=== PATIENT | female | born 1950 | race Caucasian/White ===

== ENCOUNTER → 2019-02-22 08:58 | Outpatient (CLI) | payer MEDICARE, OTHER, SELFPAY ==
[2019-01-09 14:40] VITALS: BMI 24.5
== END ==
PROVIDERS: Family Provider Internal Medicine; PCP Internal Medicine; Referring Provider Internal Medicine Cardiovascular Disease; Visit Provider Internal Medicine Cardiovascular Disease
DX: I47.1 Supraventricular tachycardia (principal)
CPT/HCPCS: 93225; 93226

== ENCOUNTER → 2020-04-16 09:48 | Outpatient (CLI) | payer MEDICARE, OTHER, SELFPAY ==
[2020-04-15 12:59] VITALS: BMI 24.1
[2020-04-16 10:36] LABS: AST(SGOT) 23 U/L (15-37); Alanine Aminotransfer ALT/SGPT 24 U/L (13-56); Albumin, Serum 3.9 g/dL (3.2-5.0); Alkaline Phosphatase 69 U/L (45-117); Bilirubin, Direct 0.15 mg/dL (0.00-0.30); Cholesterol 246 mg/dL (200); Globulin 3.4 g/dL (2.2-4.2); High Density Lipoprotein 58 mg/dL; Protein, Total 7.3 g/dL (6.4-8.2); Triglycerides 157 mg/dL; Very Low Density Lipoprotein 31 mg/dL (5-40)
== END ==
PROVIDERS: PCP Internal Medicine; Referring Provider Internal Medicine Cardiovascular Disease; Visit Provider Internal Medicine Cardiovascular Disease
DX: E78.5 Hyperlipidemia, unspecified (principal)
CPT/HCPCS: 36415; 80061; 80076

== ENCOUNTER → 2020-05-29 10:03 | Outpatient (CLI) | payer MEDICARE, OTHER, SELFPAY ==
[2020-04-15 12:59] VITALS: BMI 24.1
[2020-05-29 10:57] LABS: AST(SGOT) 22 U/L (15-37); Alanine Aminotransfer ALT/SGPT 27 U/L (13-56); Albumin, Serum 3.8 g/dL (3.2-5.0); Alkaline Phosphatase 83 U/L (45-117); Bilirubin, Direct 0.11 mg/dL (0.00-0.30); Cholesterol 223 mg/dL (200); Globulin 3.4 g/dL (2.2-4.2); High Density Lipoprotein 49 mg/dL; Protein, Total 7.2 g/dL (6.4-8.2); Triglycerides 185 mg/dL; Very Low Density Lipoprotein 37 mg/dL (5-40)
== END ==
PROVIDERS: PCP Internal Medicine; Referring Provider Nurse Practitioner Family; Visit Provider Nurse Practitioner Family
DX: E78.5 Hyperlipidemia, unspecified (principal)
CPT/HCPCS: 36415; 80061; 80076

== ENCOUNTER 2021-04-17 05:27 | Day surgery (SDC) | payer MEDICARE, OTHER, SELFPAY ==
[2021-01-15 10:54] VITALS: BMI 23.7
[2021-04-17] VITALS (8 sets, daily range): BP systolic 130–187; BP diastolic 70–105; PULSE 69–75; RESP 16; TEMP 35.9–36.6; O2SAT 95–100; BMI 23.8
[2021-04-17] MEDS: Lactated Ringers 1,000 ML 100 ML IV (06:02)
--- NOTE | 2021-04-17 06:20 | PCM.HP.STD ---
HPI - General [facility] Jadiel DUMONT, is a 70 F who presentsFor a surveillance colonoscopy. The patient has a previous history of colon cancer 19 years prior. Her most recent colonoscopy was February 2016. She denies bright red blood per rectum or melena. She has not had COVID-19. She has been vaccinated. She does have atrial fibrillation and she is on low-dose aspirin. No abdominal pain. No unexpected weight loss. [facility], [facility] Medical History (Updated 04/17/21 @ 06:[address] Ruddy Orellana MD) Abnormal nuclear stress test (12/24/18) Blackout Essential (primary) hypertension History of colon cancer History of diverticulitis History of echocardiogram History of stress test Hx of skin cancer, basal cell Hyperlipidemia Non-smoker Osteoarthritis PAF (paroxysmal atrial fibrillation) Palpitations Paroxysmal SVT (supraventricular tachycardia) (11/06/19) Seasonal allergies Syncope Wears glasses Home Medications fluticasone propionate 1 spray NASAL DAILY 03/24/17 [History Last Taken Unknown] multivitamin 1 ea PO DAILY 03/24/17 [History Last Taken Unknown] biotin 5,000 mcg disintegrating tablet 10,000 mcg PO DAILY 01/09/19 [History Last Taken Unknown] cholecalciferol (vitamin D3) 50 mcg (2,000 unit) capsule 2,000 unit PO DAILY 01/09/19 [History Last Taken Unknown] cyclosporine 0.05 % eye drops in a dropperette 1 drp OPHTHALMIC Q12H 01/09/19 [History Last Taken Unknown] lactobacillus combination no.9 4 billion cell capsule 4,000 mmu cells PO DAILY 01/09/19 [History Last Taken Unknown] methylcellulose (with sugar) oral powder packet 1 ea PO DAILY 01/09/19 [History Last Taken Unknown] aspirin 81 mg tablet,delayed release 81 mg PO QDAY #90 tab 04/17/20 [Rx Last Taken Unknown] metoprolol tartrate 25 mg tablet 12.5 mg PO BID #90 tab 09/25/20 [Rx Last Taken Unknown] lisinopril 5 mg tablet 5 mg PO DAILY #90 tab 01/15/21 [Rx Last Taken Unknown] Allergy/AdvReac Type Severity Reaction Status Date / Time No Known Allergies Allergy Verified 04/14/21 12:15 Family History Father Diabetes Hyperlipidemia Atrial fibrillation Mother Diabetes Hyperlipidemia Myocardial infarction CAD (coronary artery disease) Surgical History (Updated 11/29/20 @ 12:32 by Tiffany Sales) H/O radiofrequency ablation for complex left atrial arrhythmia (11/06/19) History of appendectomy History of colon resection (2001) History of left heart catheterization (12/26/18) History of left oophorectomy (2001) Status post surgical removal of malignant neoplasm of skin Social History (Updated 04/15/20 @ 13:[address] Joe Mann MD) Smoking Status: Never smoker ROS Constitutional Constitutional: Reports systems reviewed and no addt'l complaints, except as documented Cardiovascular Cardiovascular: Denies chest pain Respiratory/Chest Respiratory/Chest: Denies shortness of breath at rest Gastrointestinal Gastrointestinal: Denies abdominal pain, change in bowel habits, hematochezia or melena Vital Signs Vital Signs Vital Signs: 04/17/21 05:57 Temperature 97.8 F Temperature Source Temporal Pulse Rate 73 Respiratory Rate 16 Respiratory Pattern Normal Blood Pressure 165/99 H Blood Pressure Mean 121 Blood Pressure Source Monitor Blood Pressure Position Semi-Fowlers Pulse Ox 99 Oxygen Delivery Method Room Air Weight Weight: 152 lb 1.903 oz Body Mass Index (BMI) 23.8 Physical Exam Const alert, oriented x3 and no apparent distress General Appearance: cooperative and comfortable Eyes General Eye: normal appearance of both eyes Neck General: normal visual inspection Chest inspection of chest normal Resp Effort and Inspection: able to speak in complete sentences and symmetric chest movement Auscultation: clear to auscultation bilaterally Cardio regular rate and regular rhythm GI soft to palpation, non-tender and non-distended Extremity no calf tenderness Neuro oriented x3 Psych thought process normal Assessment & Plan Assessment/Plan (1) History of colon cancer: PLAN: The patient presents via open access today. I recommend to her a colonoscopy with possible biopsy or polypectomy as indicated. She is aware of the technique, benefit, risk, alternatives. We will proceed as noted. Ruddy Orellana M.D., F.A.C.S.
[2021-04-17] MEDS: Midazolam 5 MG/ML Syringe (06:35)
--- NOTE | 2021-04-17 06:52 | OP.COLON_ITS ---
Patient Name: Erika Yancey Procedure Date: 04/17/2021 6:09 AM Date of : 1950 Age: 70 Procedure: Colonoscopy Indications: High risk colon cancer surveillance: Personal history of colon cancer Providers: Ruddy Orellana MD Medicines: Midazolam 3 mg IV, Meperidine 100 mg IV Patient Profile: Last Colonoscopy: 5 years ago. Complications: No immediate complications. Procedure: Pre-Anesthesia Assessment: - Prior to the procedure, a History and Physical was performed, and patient medications and allergies were reviewed. The patient's tolerance of previous anesthesia was also reviewed. The risks and benefits of the procedure and the sedation options and risks were discussed with the patient. All questions were answered, and informed consent was obtained. Prior Anticoagulants: The patient has taken aspirin, last dose was day of procedure. ASA Grade Assessment: II - A patient with mild systemic disease. After reviewing the risks and benefits, the patient was deemed in satisfactory condition to undergo the procedure. After I obtained informed consent, the scope was passed under direct vision. Throughout the procedure, the patient's blood pressure, pulse, and oxygen saturations were monitored continuously. The pediatric colonoscope was introduced through the anus and advanced to the cecum, identified by appendiceal orifice and ileocecal valve. The colonoscopy was performed without difficulty. The patient tolerated the procedure well. The quality of the bowel preparation was good. The ileocecal valve and the appendiceal orifice were photographed. Moderate Sedation: Moderate (conscious) sedation was personally administered by the endoscopist. The following parameters were monitored: oxygen saturation, heart rate, blood pressure, and response to care. Total physician intraservice time was 15 minutes. Scope In: 6:36:13 AM Scope Withdrawal Time 0 hours 5 minutes 44 seconds Scope Out: 6:47:44 AM Total Procedure Duration Time 0 hours 11 minutes 31 seconds Findings: Hemorrhoids were found on perianal exam. There was evidence of a prior end-to-end colo-colonic anastomosis in the distal sigmoid colon. This was patent and was characterized by healthy appearing mucosa. Multiple diverticula were found in the entire colon. The exam was otherwise without abnormality. Impression: - Hemorrhoids found on perianal exam. - Patent end-to-end colo-colonic anastomosis, characterized by healthy appearing mucosa. - Diverticulosis in the entire examined colon. - The examination was otherwise normal. - No specimens collected. Recommendation: - Discharge patient to home. - Resume previous diet. - Continue present medications. - Repeat colonoscopy in 5 years for surveillance. Procedure Code(s): --- Professional --- 98941, Colonoscopy, flexible; diagnostic, including collection of specimen(s) by brushing or washing, when performed (separate procedure) 28735, 59, Moderate sedation services provided by the same physician or other qualified health career professional performing the diagnostic or therapeutic service that the sedation supports, requiring the presence of an independent trained observer to assist in the monitoring of the patient's level of consciousness and physiological status; initial 15 minutes of intraservice time, patient age 5 years or older Diagnosis Code(s): --- Professional --- Z85.038, Personal history of other malignant neoplasm of large intestine K64.9, Unspecified hemorrhoids Z98.0, Intestinal bypass and anastomosis status K57.30, Diverticulosis of large intestine without perforation or abscess without bleeding CPT copyright 2017 [employer]. All rights reserved. The codes documented in this report are preliminary and upon public events facilities rental manager review may be revised to meet current compliance requirements. Ruddy Orellana MD 04/17/2021 6:52:17 AM This report has been signed electronically. Number of Addenda: 0 Note Initiated On: 04/17/2021 6:09 AM
--- NOTE | 2021-04-17 06:53 | OP.CCLET_ITS ---
04/17/2021 Jennifer Kee [address] [id number] Re : Colonoscopy procedure for Erika Yancey Dear Dr. Kee This procedure was performed on Saturday, April 17, 2021. My impressions and recommendations are as follows: Impressions : - Hemorrhoids found on perianal exam. - Patent end-to-end colo-colonic anastomosis, characterized by healthy appearing mucosa. - Diverticulosis in the entire examined colon. - The examination was otherwise normal. - No specimens collected. Recommendations : - Discharge patient to home. - Resume previous diet. - Continue present medications. - Repeat colonoscopy in 5 years for surveillance. My findings are described in the full procedure note, which is enclosed. If I can be of further assistance, please feel free to contact me at Doctor phone number(s): Work: . Sincerely, Ruddy Orellana MD 04/17/2021 6:52:17 AM This report has been signed electronically.
== END 2021-04-17 07:41 ==
LOC: EN 05:29 → AC 05:30
PROVIDERS: PCP Internal Medicine; Referring Provider Internal Medicine; Visit Provider Surgery
PROC: 0DJD8ZZ Inspection of Lower Intestinal Tract, Via Natural or Artificial Opening Endoscopic (ICD-10-PCS; CPT 45378; principal; 2021-04-17 06:25)
DX: Z12.11 Encounter for screening for malignant neoplasm of colon (principal); K57.30 Diverticulosis of large intestine without perforation or abscess without bleeding; K64.9 Unspecified hemorrhoids; Z98.0 Intestinal bypass and anastomosis status; Z85.038 Personal history of other malignant neoplasm of large intestine; I48.0 Paroxysmal atrial fibrillation; I10 Essential (primary) hypertension; E78.5 Hyperlipidemia, unspecified; M19.90 Unspecified osteoarthritis, unspecified site; Z79.82 Long term (current) use of aspirin; Z79.899 Other long term (current) drug therapy; Z85.828 Personal history of other malignant neoplasm of skin
CPT/HCPCS: G0105; 99152; 99153; J7120

== ENCOUNTER → 2025-04-20 | Outpatient (CLI) | payer MEDICARE, SELFPAY ==
--- NOTE | 2025-04-20 07:56 | CT_ITS ---
PROCEDURE: SINUS/FACIAL BONE 04/20/2025 REASON FOR EXAM: CHRONIC SINUSITIS 4 year history of left maxillary pain. Multiple dental procedures. TECHNIQUE: SINUS/FACIAL BONE Coronal and Sagittal reconstruction series were provided. One or more dose reduction techniques were used (e.g., Automated exposure control, adjustment of the mA and/or kV according to patient size, use of iterative reconstruction technique). RADIATION DOSE SUMMARY: CTDlvol: 12.19 mGy DLP: 800.79 mGycm COMPARISON: None FINDINGS: Frontal: Unremarkable Ethmoid: Unremarkable Sphenoid: Unremarkable Maxillary: There is a 9.2 mm polyp or retention cyst in the anterior inferior aspect of the left maxillary sinus. Turbinates: Unremarkable Nasal Septum: Midline Mastoids/Middle Ears: Unremarkable There is a 1 cm well-defined lymph node in the left submandibular There is a 9.5 mm rounded dense this may represent a densely calcified meningioma. CT/Sinus/Facial Bone IMPRESSION: 9.2 mm polyp or retention cyst in the anterior inferior aspect of the left maxi llary sinus. 9.5 mm rounded densely ossified nodule in the anterior medial aspect of the rig ht temporal lobe. This may represent a densely calcified meningioma. Reading Location: [facility]
--- OUTSIDE RECORDS SUMMARY | 2025-04-20 07:56 | XMS RPT_ITS | CCD ---
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 Name Role Phone GANTA, JENNIFER Unavailable Unavailable Roof HEALTH UNIT CLERK, Marcell Lai Attending Unavailable Ganta, Jennifer Referring Unavailable Ganta, Jennifer Primary Care Unavailable Ganta, Jennifer Referring Unavailable Ganta, Jennifer Primary Care Unavailable Roof HEALTH UNIT CLERK, Marcell Lai Attending Unavailable Ganta Jennifer COLIN Primary Care Provider [phone] Jennifer Garay MD Primary Care Provider [phone] Older RESEARCH PROJECT MANAGER.MARKETING DATABASE CONSULTANT, Ginger Unavailable GANTA, JENNIFER Referring Unavailable GANTA, JENNIFER Primary Care Unavailable GANTA, JENNIFER Attending Unavailable GANTA, JENNIFER Primary Care Unavailable GANTA, JENNIFER Referring Unavailable GANTA, JENNIFER Primary Care Unavailable GANTA, JENNIFER Referring Unavailable GANTA, JENNIFER Primary Care Unavailable GANTA, JENNIFER Attending Unavailable GANTA, JENNIFER Primary Care Unavailable GANTA, JENNIFER Referring Unavailable GANTA, JENNIFER Primary Care Unavailable GANTA, JENNIFER Attending Unavailable GANTA, JENNIFER Primary Care Unavailable Allergies Allergy Classification Reported Allergen(s) Allergy Type Date of Onset Reaction(s) Facility Pollen (2 sources) Grass pollen Substance Allergy 6 [facility] Work Phone: (18 sources) Grass pollen; Translations: [GRASS POLLEN] Propensity to adverse reactions to drug (disorder) 6 [facility] (18 sources) Pollen; Translations: [POLLEN] Propensity to adverse reactions (disorder) 6 [facility] (19 sources) Tree; Translations: [TREES] Propensity to adverse reactions (disorder) 6 [facility] (19 sources) RAGWEED; Translations: [RAGWEED] Propensity to adverse reactions (disorder) 6 [facility] Medications Current Medications Medication Drug Class(es) Dates Sig (Normalized) Sig (Original) Acetaminophen (3 sources) acetaminophen (TYLENOL ARTHRITIS ORAL) Take by mouth. Active amLODIPine 2.5 mg oral tablet (4 sources) Dihydropyridine Calcium Channel Adrian Start: 01-14-2025 End: 04-15-2026 take 1 tablet by mouth once daily amLODIPine (NORVASC) 2.5 mg tablet Take 1 tablet by mouth once daily. 90 tablet 3 04/15/2025 04/15/2026 Active amoxicillin 875 mg / clavulanate 125 mg oral tablet (2 sources) Penicillin-class Antibacterial Start: 07-05-2024 take 1 tablet by mouth every twelve hours amoxicillin-clavul anate potassium (AUGMENTIN) 875-125 mg per tablet Take 1 tablet by mouth every 12 hours. 07/05/2024 Active aspirin 81 mg oral tablet (17 sources) Platelet Aggregation Inhibitor, Nonsteroidal Anti-inflammatory Drug Start: 10-19-2005 ASPIRIN 81 MG TAB Take one (1) tablet daily . 0 10/19/2005 Active Comment on above: Take one (1) tablet daily . biotin 0.8 mg oral tablet (17 sources) Start: 10-20-2005 BIOTIN 800 MCG TAB Take one(1) tablet two(2) times daily. 0 10/20/2005 Active Comment on above: Take one(1) tablet t wo(2) times daily. cycloSPORINE 0.5 mg/ml ophthalmic suspension (17 sources) Calcineurin Inhibitor Immunosuppressant take 1 drop(s) into the eye(s) twice daily cycloSPORINE (RESTASIS) 0.05 % ophthalmic emulsion 1 Drop twice daily. Active Comment on above: 1 Drop twice daily. fluticasone propionate 0.05 mg/actuat metered dose nasal spray (17 sources) Corticosteroid Start: 06-30-2015 take 2 spray(s) nasal route once daily fluticasone (FLONASE) 50 mcg/actuation nasal spray Indications: Chronic rhinitis Use 2 Sprays in each nostril once daily. 3 Bottle 3 06/30/2015 Active Comment on above: Use 2 Sprays in each nostril once daily. lisinopril 20 mg oral tablet (11 sources) Angiotensin Converting Enzyme Inhibitor Start: 01-14-2025 lisinopril (ZESTRIL) 20 mg tablet Take 1 tablet by mouth two times a day. Per Dr. Hardwick 180 tablet 01/14/2025 Active Start: 01-18-2022 End: 02-01-2023 take 1 tablet by mouth once daily lisinopril (ZESTRIL, PRINIVIL) 10 mg tablet Take 1 tablet by mouth once daily. 90 tablet 3 01/18/2022 02/01/2023 Discontinued lisinopril (ZEST RIL) 30 mg tablet Take 30 mg by mouth once daily. 10 mg AM and 20 mg PM - Managed by Dr. Hardwick Active Comment on above: Take 1 tablet by [facility] once daily. methylcellulose 500 mg oral tablet (17 sources) Start: 02-02-20 08 methylcellulose(CITR UCEL 500 MG TAB) daily 0 0 02/02/2008 Active Comment on above: daily metoprolol tartrate 25 mg oral tablet (17 sources) beta-Adrenergic Adrian Start: 01-19-20 22 metoprolol tartrate, short acting, (LOPRESSOR) 25 mg tablet Takes half a pill 2 times a day 01/18/2022 Active Comment on above: Takes half a pill 2 times a day MULTIVITAMIN TAB (17 sources) Start: 10-19-19 06 MULTIVITAMIN TAB Take one(1) tablet daily. 0 10/19/2005 Active Comment on above: Take one(1) tablet d aily. rosuvastatin calcium 10 mg oral tablet (4 sources) HMG-CoA Reductase Inhibitor Start: 01-15-20 End: 04-15-20 26 take 1 tablet by mouth once daily at bedtime rosuvastatin (CRESTOR) 10 mg tablet Take 1 tablet by mouth daily at bedtime. 90 tablet 3 04/15/2025 04/15/2026 Active Completed/Discontinued Medications Medication Drug Class(es) Dates Sig (Normalized) Sig (Original) cetirizine hydrochloride 10 mg oral tablet (5 sources) Histamine-1 Receptor Antagonist Start: 10-20-2005 End: 02-01-2023 ZYRTEC 10 MG TAB Take one(1) tablet daily. 0 10/20/2005 02/01/2023 Discontinued Comment on above: Take one(1) tablet d aily. COMPOUNDED PRESCRIPTION (5 sources) Start: 07-22-2017 End: 02-01-2023 COMPOUNDED PRESCRIPTION Indications: Chronic seasonal allergic rhinitis due to pollen Allergy sublingual drops : ordered by 0 07/22/2017 02/01/2023 Discontinued Start: 07-22-2017 COMPOUNDED PRE SCRIPTION Indications: Chronic seasonal allergic rhinitis due to pollen Allergy sublingual drops : ordered by 0 07/22/2017 Active Comment on above: Allergy sublingual d rops : ordered by Problems Active Problems Problem Classification Problem Date Documented Da te Episodic/Chronic Cancer of colon (19 sources) Malignant tumor of colon; Translations: [Malignant neoplasm of colon, unspecified] 07-22-2017 Chronic Cardiac dysrhythmias (20 sources) Supraventricular tachycardia; Translations: [Supraventricular tachycardia] Onset: 9 01-22-2019 Chronic Disorders of lipid metabolism (4 sources) Hyperlipidemia; Translations: [Hyperlipidemia, unspecified] Onset: 3 Chronic Diverticulosis and diverticulitis (20 sources) Diverticulitis of large intestine without perforation or abscess without bleeding; Translations: [Diverticulitis of colon (without mention of hemorrhage)] Onset: 8 10-19-2005 Chronic Essential hypertension (20 sources) Essential hypertension; Translations: [Essential (primary) hypertension] Onset: 6 06-30-2015 Chronic Occlusion or stenosis of precerebral arteries (1 source) Occlusion and stenosis of bilateral carotid arteries; Translations: [Bilateral carotid artery stenosis] Onset: 5 Chronic Other aftercare (1 source) Other intermediate designer (current) drug therapy; Translations: [Medication management] Onset: 5 Episodic Other and ill-defined heart disease (18 sources) Left ventricular hypertrophy; Translations: [Cardiomegaly] Onset: 7 07-22-2017 Chronic Other gastrointestinal disorders (18 sources) Constipation; Translations: [Constipation, unspecified] Onset: 8 01-18-2008 Episodic Other gastrointestinal disorders (1 source) Constipation, unspecified; Translations: [Constipation, unspecified constipation type] Onset: 5 Episodic Other screening for suspected conditions (not mental disorders or infectious disease) (10 sources) Patient encounter status; Translations: [Encounter for screening mammogram for malignant neoplasm of breast] Onset: 5 Episodic Other upper respiratory disease (17 sources) Allergic rhinitis; Translations: [Allergic rhinitis, unspecified] Onset: 6 07-22-2017 Chronic Past or Other Problems Problem Classification Problem Date Documented Da te Episodic/Chronic Cardiac dysrhythmias (16 sources) Palpitations; Translations: [Tachycardia] Onset: 01-23-2018 01-22-2019 Episodic Diabetes mellitus without complication (20 sources) Abnormal glucose tolerance test; Translations: [Other abnormal glucose] Onset: 01-08-2025 10-19-2005 Episodic Other inflammatory condition of skin (17 sources) Itching of skin; Translations: [Pruritus, unspecified] Onset: 06-30-2015 06-30-2015 Episodic Other non-traumatic joint disorders (18 sources) Pain in left knee; Translations: [Pain in joint, lower leg] Onset: 03-03-2016 03-03-2016 Episodic Spondylosis; intervertebral disc disorders; other back problems (17 sources) Neck pain; Translations: [Cervicalgia] Onset: 03-03-2016 03-03-2016 Episodic Results Test Name Value Interpretation Reference Range Facility [facility] 04-15-2025 CNOV Office Visit (INTMWS) ERIKA YANCEY ([id number]) 1950 F Date Time Provider Department 04/15/25 11:40 AM JENNIFER GARAY INTMWS During your visit today, we recorded the following information about you: Pulse Respiration Blood pressure Weight 68/minute 16/minute 138/80 70.8 kg Height 1.72 m Jennifer Garay MD 04/15/2025 12:45 PM Signed Erika Goldberg Naye is a 74 year old female here for a Medicare wellness visit. Medicare Health Risk Assessment General Health Very good Exercise: Minutes/Day 80 min Exercise: Days/Week 7 days Alcohol: Daily Use Never Alcohol: Drinks/Day Patient does not drink Alcohol: 6 or more drinks Never Feel off balance No Concerns: Teeth/Dentures Yes Concerns: Sexual function No Troubled by feelings None of the above Frequency: Eating healthy diet Nearly every day ADLs requiring help None of the above Safety precautions in home/vehicle Yes Smoke, vape, chews tobacco No Difficulty hearing No Difficulty seeing No Current Providers Specialists: I have reviewed specialist-related care of the patient in the medical record. Medical/Family history review Reviewed and updated problem list, medical/surgical/fam pam/social history, medications, and allergies. Opioid use review Opioid Medications (last 90 days) No data to display Anxiety/Depression screening FABIENNE-7 Score: 0. Recommendation: no further intervention at this time Cognitive screening Mini Cog Score: 5 Cognitive screening reviewed and No further action needed (score 3-5). Functional Observation Was the patient's Timed Up AND Go test unsteady or >= 12 seconds? No Advance Care Planning Surrogate decision maker and/or advance care plan documented Measurements BP 138/80 Pulse 68 Resp 16 Ht 172 cm (5' 7.72) Wt 70.8 kg (156 lb) SpO2 98% BMI 23.92 kg/m? Vision Screening: Follows with optometry/ophthalmol ogy Assessment/Plan Medicare annual wellness visit, subsequent (Z00.00) - Counseled on healthy diet and regular exercise - Fall avoidance information provided - Personalized prevention plan provided. Reason for Visit HPI Erika Yancey is a 74-year-old female with a history of paroxysmal atrial fibrillation, hypercholesterolemia , and elevated blood pressure, presenting for a Medicare Annual Wellness Visit. Erika reports improved blood pressure readings, with fewer measurements in the 140s compared to previous recordings. She attributes this improvement to her current medication regimen, which includes amlodipine. She is requesting a 90-day supply with three refills for both amlodipine and rosuvastatin, as she finds monthly pharmacy visits inconvenient. She exercises daily for 80 minutes, 7 days a week, and rates her health as very good. She denies alcohol consumption, smoking, or difficulties with hearing or vision. She has been taking rosuvastatin 10 mg since the spring and notes significant improvement in her lipid levels. She is also on aspirin for paroxysmal atrial fibrillation. Recent lab results show a decrease in A1c from 6.0 to 5.9, stable glucose levels, and kidney function at 91. Her weight remains stable, with minor fluctuations attributed to bowel movements. She reports sluggish and dry bowels, requiring focused management. She has made dietary changes, reducing dessert and pasta intake, which she believes contributed to the improvement in her A1c levels. Social History Tobacco Use Smoking status: Never Smokeless tobacco: Never Substance Use Topics Alcohol use: No Drug use: No Past medical history, appointments, medications, allergies reviewed. Pertinent Lab/Diagnostic Studies are reviewed and discussed today Current Outpatient Medications: rosuvastatin (CRESTOR) 10 mg tablet amLODIPine (NORVASC) 2.5 mg tablet lisinopril (ZESTRIL) 20 mg tablet acetaminophen (TYLENOL ARTHRITIS ORAL) metoprolol tartrate, short acting, (LOPRESSOR) 25 mg tablet fluticasone (FLONASE) 50 mcg/actuation nasal spray cycloSPORINE (RESTASIS) 0.05 % ophthalmic emulsion methylcellulose(CITR UCEL 500 MG TAB) BIOTIN 800 MCG TAB MULTIVITAMIN TAB ASPIRIN 81 MG TAB Health Maintenance Depression Screening Anxiety Screening Medicare Advantage Annual Wellness Visit@ Review Of Systems Eyes: (-) visual difficulty Ears/Nose/Mouth/Thro at: (-) hearing difficulty Gastrointestinal: (+) constipation Physical Exam BP 138/80 Pulse 68 Resp 16 Ht 172 cm (5' 7.72) Wt 70.8 kg (156 lb) SpO2 98% BMI 23.92 kg/m? GENERAL: NAD, alert and oriented SKIN: unremarkable, no rash or skin lesions. HEAD: normocephalic EYES: PERRLA, EOMI, conjunctiva clear EARS: external ears normal, canals clear, TM's normal. LUNGS: Clear to auscultation bilaterally, no wheezes/rhonchi/rale s. HEART: Regular rate and rhythm, no murmurs. No ectopy. EXTREMITIES: Normal, No deformities, No skin (more content not included)... Normal [facility] CBC panel Auto (Bld)on 04-09 Erythrocyte distribution width (RBC) [Ratio] 13.2 % Normal 11.5-15.0 [facility] Comment on above: Order Comment: Speci men Type: BLOOD SPECIMEN Ordering Facility: [facility] Address: [address] [place] [address] Performed By: #### 5 8410-2 #### [facility] CLIA [id number] [address] [place] [address] [place] [address] [place] Hematocrit (Bld) [Volume fraction] 38.3 % Normal 36.0-46.0 [facility] Comment on above: Order Comment: Speci men Type: BLOOD SPECIMEN Ordering Facility: [facility] Address: [address] [place] [address] Performed By: #### 5 8410-2 #### [facility] CLIA [id number] [address] [place] [address] [place] Hemoglobin (Bld) [Mass/Vol] 12.0 g/dL Normal 11.5-15.5 [facility] Comment on above: Order Comment: Speci men Type: BLOOD SPECIMEN Ordering Facility: [facility] Address: [address] [place] [address] Performed By: #### 5 8410-2 #### [facility] CLIA [id number] [address] [place] [address] [place] MCH (RBC) [Entitic mass] 29.3 pg Normal 26.0-34.0 [facility] Comment on above: Order Comment: Speci men Type: BLOOD SPECIMEN Ordering Facility: [facility] Address: [address] [place] [address] Performed By: #### 5 8410-2 #### [facility] CLIA [id number] [address] [place] [address] [place] MCHC (RBC) [Mass/Vol] 31.3 g/dL Normal 30.5-36.0 [facility] Comment on above: Order Comment: Speci men Type: BLOOD SPECIMEN Ordering Facility: [facility] Address: [address] [place] [address] Performed By: #### 5 8410-2 #### [facility] CLIA [id number] [address] [place] [address] [place] MCV (RBC) [Entitic vol] 93.6 fL Normal 80.0-100.0 [facility] Comment on above: Order Comment: Speci men Type: BLOOD SPECIMEN Ordering Facility: [facility] Address: [address] [place], [place] [address] Performed By: #### 5 8410-2 #### [facility] CLIA [id number] [address] [place] [address] [place] Nucleated RBC (Bld) [#/Vol] 10*3/uL Normal <0.01 [facility] Comment on above: Order Comment: Speci men Type: BLOOD SPECIMEN Ordering Facility: [facility] Address: [address] [place] [address] Performed By: #### 5 8410-2 #### [facility] CLIA [id number] [address] [place] [address] [place] Platelet mean volume (Bld) [Entitic vol] 9.5 fL Normal 9.0-12.7 [facility] Comment on above: Order Comment: Speci men Type: BLOOD SPECIMEN Ordering Facility: [facility] Address: [address] [place] [address] Performed By: #### 5 8410-2 #### [facility] CLIA [id number] [address] [place] [address] [place] Platelets (Bld) [#/Vol] 190 10*3/uL Normal 150-400 [facility] Comment on above: Order Comment: Speci men Type: BLOOD SPECIMEN Ordering Facility: [facility] Address: [address] [place] [address] Performed By: #### 5 8410-2 #### [facility] CLIA [id number] [address] [place] [address] [place] RBC (Bld) [#/Vol] 4.09 10*6/uL Normal 3.90-5.20 [facility] Comment on above: Order Comment: Speci men Type: BLOOD SPECIMEN Ordering Facility: [facility] Address: [address] [place] [address] Performed By: #### 5 8410-2 #### [facility] CLIA [id number] [address] [place] [address] [place] WBC (Bld) [#/Vol] 6.27 10*3/uL Normal 3.70-11.00 [facility] Comment on above: Order Comment: Speci men Type: BLOOD SPECIMEN Ordering Facility: [facility] Address: [address] [place] [address] Performed By: #### 5 8410-2 #### [facility] CLIA [id number] [address] [place] [address] [place] Comprehensive metabolic 2000 panelon 04-09-2025 Albumin [Mass/Vol] 4.4 g/dL Normal 3.9-4.9 [facility] Comment on above: Order Comment: Speci men Type: BLOOD SPECIMEN Ordering Facility: [facility] Address: [address] [place] [address] Performed By: #### L IPNF, 77816-2 #### [facility] CLIA [id number] [address] [place] [address] [place] ALP [Catalytic activity/Vol] 65 U/L Normal 34-123 [facility] Comment on above: Order Comment: Speci men Type: BLOOD SPECIMEN Ordering Facility: [facility] Address: [address] [place] [address] Performed By: #### L IPNF, 00790-9 #### [facility] CLIA [id number] [address] [place] [address] [place] ALT [Catalytic activity/Vol] 15 U/L Normal 7-38 [facility] Comment on above: Order Comment: Speci men Type: BLOOD SPECIMEN Ordering Facility: [facility] Address: [address] [place] [address] Performed By: #### L IPNF, 48322-9 #### [facility] CLIA [id number] [address] [place], [place] [id number] [place] Anion gap [Moles/Vol] 12 mmol/L Normal 8-15 [facility] Comment on above: Order Comment: Speci men Type: BLOOD SPECIMEN Ordering Facility: [facility] Address: [address] [place] [address] Performed By: #### L IPNF, 33742-3 #### [facility] CLIA [id number] [address] [place] [address] [place] AST [Catalytic activity/Vol] 28 U/L Normal 13-35 [facility] Comment on above: Order Comment: Speci men Type: BLOOD SPECIMEN Ordering Facility: [facility] Address: [address] [place] [address] Performed By: #### L IPNF, 00575-2 #### [facility] CLIA [id number] [address] [place] [address] [place] Bilirubin [Mass/Vol] 0.4 mg/dL Normal 0.2-1.3 [facility] Comment on above: Order Comment: Speci men Type: BLOOD SPECIMEN Ordering Facility: [facility] Address: [address] [place] [address] Performed By: #### L IPNF, 91715-7 #### [facility] CLIA [id number] [address] [place] [address] [place] Calcium [Mass/Vol] 9.5 mg/dL Normal 8.5-10.2 [facility] Comment on above: Order Comment: Speci men Type: BLOOD SPECIMEN Ordering Facility: [facility] Address: [address] [place] [address] Performed By: #### L IPNF, 46336-6 #### [facility] CLIA [id number] [address] [place] [address] [place] Chloride [Moles/Vol] 104 mmol/L Normal 98-107 [facility] Comment on above: Order Comment: Speci men Type: BLOOD SPECIMEN Ordering Facility: [facility] Address: [address] [place] [address] Performed By: #### L IPNF, 89394-5 #### [facility] CLIA [id number] [address] [place] [address] [place] CO2 [Moles/Vol] 25 mmol/L Normal 22-30 [facility] Comment on above: Order Comment: Speci men Type: BLOOD SPECIMEN Ordering Facility: [facility] Address: [address] [place] [address] Performed By: #### L SHANTANU, 97905-0 #### [facility] CLIA [id number] [address] [place] [address] [place] Creatinine [Mass/Vol] 0.70 mg/dL Normal 0.58-0.96 [facility] Comment on above: Order Comment: Speci men Type: BLOOD SPECIMEN Ordering Facility: [facility] Address: [address] [place] [address] Performed By: #### L SHANTANU, 04742-0 #### [facility] CLIA [id number] [address] [place] [address] [place] eGFRcr SerPlBld CKD-EPI 2020 91 mL/min/1.73m??? Normal >=60 [facility] Comment on above: Order Comment: Speci men Type: BLOOD SPECIMEN Ordering Facility: [facility] Address: [address] [place] [address] Result Comment: Maria Guadalupe mated Glomerular Filtration Rate (eGFR) is calculated using the 2020 CKD-EPI creatinine equation. This equation utilizes serum creatinine, sex, and age as parameters. The creatinine assay has traceable calibration to isotope dilution-mass spectrometry. Refer to KDIGO guidelines for clinical interpretation. In patients with unstable renal function, e.g. those with acute kidney injury, the eGFR may not accurately reflect actual GFR. Performed By: #### L SHANTANU, 12008-5 #### [facility] CLIA [id number] [address] [place], [place] [id number] [place] Glucose [Mass/Vol] 108 mg/dL High 74-99 [facility] Comment on above: Order Comment: Specerma tapia Type: BLOOD SPECIMEN Ordering Facility: [facility] Address: [address] [place] [address] Result Comment: The [place] [employer] (ADA) provides guidance for cutoff values for fasting glucose and random glucose. The ADA defines fasting as no caloric intake for at least 8 hours. Fasting plasma glucose results between 100 to 125 mg/dL indicate increased risk for diabetes (prediabetes). Fasting plasma glucose results greater than or equal to 126 mg/dL meet the criteria for diagnosis of diabetes. In the absence of unequivocal hyperglycemia, results should be confirmed by repeat testing. In a patient with classic symptoms of hyperglycemia or hyperglycemic crisis, random plasma glucose results greater than or equal to 200 mg/dL meet the criteria for diagnosis of diabetes. Reference: Standards of Medical Care in Diabetes 2016, [place] Diabetes Association. Diabetes Care. 2016.39(Suppl 1). Performed By: #### L SHANTANU, 15741-3 #### [facility] CLIA [id number] [address] [place] [address] [place] Potassium [Moles/Vol] 4.5 mmol/L Normal 3.7-5.1 [facility] Comment on above: Order Comment: Purnima tapia Type: BLOOD SPECIMEN Ordering Facility: [facility] Address: [address] [place] [address] Performed By: #### L IPNF, 60402-4 #### [facility] CLIA [id number] [address] [place] [address] [place] Protein [Mass/Vol] 7.1 g/dL Normal 6.3-8.0 [facility] Comment on above: Order Comment: Purnima tapia Type: BLOOD SPECIMEN Ordering Facility: [facility] Address: [address] [place] [address] Performed By: #### L IPNF, 42151-0 #### [facility] CLIA [id number] [address] [place] [address] [place] Sodium [Moles/Vol] 141 mmol/L Normal 136-144 [facility] Comment on above: Order Comment: Purnima men Type: BLOOD SPECIMEN Ordering Facility: [facility] Address: [address] [place] [address] Performed By: #### L IPNF, 51143-9 #### [facility] CLIA [id number] [address] [place] [address] [place] Urea nitrogen [Mass/Vol] 14 mg/dL Normal 7-21 [facility] Comment on above: Order Comment: Purnima men Type: BLOOD SPECIMEN Ordering Facility: [facility] Address: [address] [place] [address] Performed By: #### L IPNF, 95079-6 #### [facility] CLIA [id number] [address] [place] [address] [place] HbA1c (Bld)on 04-09-2025 Average glucose Estimated from glycated hemoglobin (Bld) [Mass/Vol] 126 mg/dL Normal [facility] Comment on above: Order Comment: Purnima men Type: BLOOD SPECIMEN Ordering Facility: [facility] Address: [address] [place] [address] Result Comment: eAG: (Estimated average glucose) is a calculated value from HgbA1c and is containers sales representative of the average blood glucose level in the last 2-3 month period. Performed By: #### 5 5454-3 #### [facility] CLIA [id number] [address] [place] [address] [place] HbA1c (Bld) [Mass fraction] 6.0 % High 4.3-5.6 [facility] Comment on above: Order Comment: Purnima [facility] Type: BLOOD SPECIMEN Ordering Facility: [facility] Address: [address] [place] [address] Result Comment: [place] Diabetes Association guidelines indicate that patients with HgbA1c in the range 5.7-6.4% are at increased risk for development of diabetes, and intervention by lifestyle modification may be beneficial. HgbA1c greater or equal to 6.5% is considered diagnostic of diabetes. Performed By: #### 5 5454-3 #### [facility] CLIA [id number] [facility] [place] [address] [place] [facility] [place] LIPID PANEL, NONFASTINGon Cholesterol [Mass/Vol] 137 mg/dL Normal <200 [facility] Comment on above: Order Comment: Speci men Type: BLOOD SPECIMEN Ordering Facility: [facility] Address: [address] [place] [address] Result Comment: <200 mg/dL, Desirable 200-239 mg/dL, Borderline high >239 mg/dL, High Performed By: #### L SHANTANU, 98920-4 #### [facility] CLIA [id number] [address] [place] [address] [place] HDL CHOLESTEROL, NF 48 mg/dL Normal >39 [facility] Comment on above: Order Comment: Speci men Type: BLOOD SPECIMEN Ordering Facility: [facility] Address: [address] [place] [address] Result Comment: 40-5 9 mg/dL, Acceptable >59 mg/dL, High: Negative risk factor for coronary heart disease <40 mg/dL, Low: Positive risk factor for coronary heart disease Performed By: #### L SHANTANU, 92908-4 #### [facility] CLIA [id number] [address] [place] [address] LDL CHOLESTEROL CALCULATED, NF 65 mg/dL Normal <100 [facility] Comment on above: Order Comment: Speci men Type: BLOOD SPECIMEN Ordering Facility: [facility] Address: [address] [place] [address] Result Comment: <100 mg/dL, Optimal 100-129 mg/dL, Near optimal/above optimal 130-159 mg/dL, Borderline high 160-189 mg/dL, High >189 mg/dL, Very high Secondary prevention optimal LDL Cholesterol levels are recommended to be <70 mg/dL LDL cholesterol is calculated using the Hines-NIH equation. Performed By: #### L SHANTANU, 68153-1 #### [facility] CLIA [id number] [address] [place] LDL/HDL RATIO, NF 1.35 mg/dL Normal <2.54 [facility] Comment on above: Order Comment: Purnima tapia Type: BLOOD SPECIMEN Ordering Facility: [facility] Address: [address] [place] [address] Result Comment: Eva de leon: 1. National Cholesterol Education Program ATP III Guideline At-A-Glance Quick Desk Reference: National Heart, Lung, and Blood Navarro. National Institutes of Health. 2001: NIH Publication No. 01-3305. 2. An International Atherosclerosis Society position paper: global recommendations for the management of dyslipidemia: executive summary, Atherosclerosis. 2014: 232(2):410-413. Performed By: #### L SHANTANU, 61395-0 #### [facility] CLIA [id number] [address] [place] [address] [place] NON HDL CHOL, NF 89 mg/dL Normal <130 [facility] Comment on above: Order Comment: Purnima tapia Type: BLOOD SPECIMEN Ordering Facility: [facility] Address: [address] [place] [address] Result Comment: <130 mg/dL, Optimal 130-159 mg/dL, Near optimal/above optimal 160-189 mg/dL, Borderline high 190-219 mg/dL, High >219 mg/dL, Very high Secondary prevention optimal non HDL Cholesterol levels are recommended to be <100 mg/dL Performed By: #### L SHANTANU, 18368-0 #### [facility] CLIA [id number] [address] [place] [address] [place] T CHOL/HDL RATIO NF 2.85 mg/dL Normal <5.10 [facility] Comment on above: Order Comment: Purnima tapia Type: BLOOD SPECIMEN Ordering Facility: [facility] Address: [address] [place] [address] Performed By: #### L IPALISTAIR, 97989-7 #### [facility] CLIA [id number] [address] [place] [address] [place] TRIGLYCERIDES, NF 139 mg/dL Normal <150 [facility] Comment on above: Order Comment: Speci men Type: BLOOD SPECIMEN Ordering Facility: [facility] Address: [address] [place] [address] Result Comment: <150 mg/dL, Normal 150-199 mg/dL, Borderline high 200-499 mg/dL, High >499 mg/dL, Very high Performed By: #### L IPNF, 22802-9 #### [facility] CLIA [id number] [address] [place] [address] [place] VLDL CHOLESTEROL, NF 21 mg/dL Normal <30 [facility] Comment on above: Order Comment: Speci men Type: BLOOD SPECIMEN Ordering Facility: [facility] Address: [address] [place] [address] Performed By: #### L IPNF, 87260-5 #### [facility] CLIA [id number] [address] [place] [address] [place] [facility]A SCREENING W TOMOon 03-26 [facility] SCREENING W KUMAR * * *Final Report* * * DATE OF EXAM: Mar 26 2025 9:13AM [facility] 0582 - [facility]URA SCREENING W KUMAR / PROCEDURE REASON: Encounter for screening mammogram for breast cancer * * * * Physician Interpretation * * * * RESULT: [place] [address] [place] [address] #[id number] - [facility]URA SCREENING W KUMAR HISTORY: 74 year-old patient presents for screening. Patient is asymptomatic in both breasts. Patient states no personal history of breast cancer. COMPARISON STUDIES: The present examination has been compared to prior imaging studies dated 03/03/2020 (mammogram), 03/09/2021 (mammogram), 03/10/2022 (mammogram), 03/17/2023 (mammogram) and 03/20/2024 (mammogram). MAMMOGRAM TECHNIQUE: The study was acquired using full field digital technology and interpreted from soft copy. Digital Breast Tomosynthesis (DBT) images were obtained and used to assist in the interpretation of this examination. MAMMOGRAM FINDINGS: The breasts are heterogeneously dense, which may obscure small masses. No suspicious masses, calcifications or other abnormalities are seen in either breast. There are no significant interval changes. IMPRESSION: There is no mammographic evidence of malignancy in either breast. Routine screening mammogram is recommended. Annual mammogram will be due in 1 year. BI-RADS Category 1: Negative RISK: Based on the Tyrer-Cuzick (TC) risk assessment model, this patient has a 3.4% lifetime risk of developing breast cancer, meaning they are at average risk for developing breast cancer. However, this is only an estimate based on available history provided on the patient's questionnaire. We encourage all patients to talk with their providers about these results, further recommendations for managing breast health, and appropriate supplemental screening options if the patient has dense breast tissue. Interpreting Radiologist: Valorie Darnell M.D. Resident/Fellow: Dagoberto Kwok M.D. Electronically signed on: 03/27/2025 Brick Setter Operator: OFELIA Transcribe Date/Time: Mar 26 2025 8:27A Dictated by: DAGOBERTO KWOK MD This examination was interpreted and the report reviewed and electronically signed by: VALORIE DARNELL MD on Mar 27 2025 11:53AM EST [id number] CN Normal [facility] CNOVon 01-14-2025 CNOV Office Visit (INTMWS) ERIKA YANCEY ([id number]) 1950 F Date Time Provider Department 01/14/25 8:40 AM JENNIFER GARAY INTMWS During your visit today, we recorded the following information about you: Temperature Pulse Respiration Blood pressure 97.1 degrees 72/minute 12/minute 132/86 Weight 70.6 kg Jennifer Garay MD 01/14/2025 11:24 AM Signed Reason for Visit Follow up labs ANABEL James is a 74-year-old female with a history of elevated A1c, HTN, and hypercholesterolemia , presenting for follow-up. Erika reports her most recent hemoglobin A1c is 6.4%, which is consistent with previous readings. She has been monitoring her diet, particularly her sugar intake, but acknowledges a preference for carbohydrates such as pasta and bread. She plans to focus more on reducing carbohydrate intake over the next three months. She also notes limitations in her diet due to diverticulosis, which prevents her from consuming large amounts of leafy greens consecutively. She remains physically active, engaging in biking, pickleball, and walking. She expresses a desire to avoid medication for diabetes management if possible. Eirka is currently on lisinopril 40 mg daily for HTN, divided into 20 mg in the morning and 20 mg in the evening. She monitors her blood pressure at home but has not checked it in the past two weeks. She reports that her boat operator in [place] increased her lisinopril dosage to 40 mg, but she feels it has not been effective in controlling her blood pressure. She is also taking metoprolol and aspirin. She recently underwent an echocardiogram and carotid duplex studies in [place], which she reports were unchanged from previous studies. She mentions a history of ablation and states that her boat operator performs an echocardiogram annually to monitor her cardiac function. She denies being on statin therapy and reports her cholesterol levels have been borderline, around 200-205 mg/dL, for a long time. She denies a strong family history of VT or CVA. Social History Tobacco Use Smoking status: Never Smokeless tobacco: Never Substance Use Topics Alcohol use: No Drug use: No Past medical history, appointments, medications, allergies reviewed. Pertinent Lab/Diagnostic Studies are reviewed and discussed today Current Outpatient Medications: metoprolol tartrate, short acting, (LOPRESSOR) 25 mg tablet fluticasone (FLONASE) 50 mcg/actuation nasal spray cycloSPORINE (RESTASIS) 0.05 % ophthalmic emulsion methylcellulose(CITR UCEL 500 MG TAB) BIOTIN 800 MCG TAB MULTIVITAMIN TAB ASPIRIN 81 MG TAB lisinopril (ZESTRIL) 20 mg tablet acetaminophen (TYLENOL ARTHRITIS ORAL) amLODIPine (NORVASC) 2.5 mg tablet rosuvastatin (CRESTOR) 10 mg tablet Health Maintenance Depression Screening Anxiety Screening BP Controlled (<130/80) Covid-19 Vaccine(8 - 2024-25 season) Mammogram Screening@ Review Of Systems Ears/Nose/Mouth/Thro at: (+) hearing changes Musculoskeletal: (+) joint pain Physical Exam BP 132/86 Pulse 72 Temp 36.2 ?C (97.1 ?F) (Temporal) Resp 12 Wt 70.6 kg (155 lb 9.6 oz) SpO2 99% BMI 24.37 kg/m? GENERAL: NAD, alert and oriented SKIN: unremarkable, no rash or skin lesions. HEAD: normocephalic EYES: PERRLA, EOMI, conjunctiva clear EARS: external ears normal, canals clear, TM's normal. NOSE/SINUSES: Nares normal. Septum midline. OROPHARYNX: lips, mucosa, and tongue normal, good dentition. No oral lesions noted. NECK: Supple, no lymphadenopathy, normal thyroid, no carotid bruits. LUNGS: Clear to auscultation bilaterally, no wheezes/rhonchi/rale s. HEART: Regular rate and rhythm, no murmurs. No ectopy. EXTREMITIES: Normal, No deformities, No skin discoloration, No edema. NEURO: Awake, alert and oriented x3, cranial nerves II-XII grossly intact, normal gait, no involuntary motions Labs: (Today) A1c: 6.4 A1c: 5.9 A1c: 6.4 Imaging: (12/04) Echocardiogram: - Left Ventricular Ejection Fraction: 55-60% - Right Ventricle: Normal in size - Left Atrium: Normal in size - Right Atrium: Normal in size - Very mild aortic sclerosis without stenosis - Mild mitral regurgitation - No diastolic dysfunction Carotid Duplex Studies: - Right Internal Carotid Artery: Less than 50% stenosis - Left Internal Carotid Artery: Less than 50% stenosis - Right Internal Carotid Artery: Mild atherosclerotic plaque and calcification - Left Internal Carotid Artery: Mild atherosclerotic plaque and calcification - Right Common Carotid: No evidence of atherosclerotic plaque Assessment and Plan 1. Essential hypertension (I10) Blood pressure readings have been suboptimal despite current treatment with Lisinopril 40 mg daily, divided into 20 mg BID. Recent echocardiogram and carotid duplex studies were performed. - Initiate Norvasc (Amlodipine) at a low dose to enhance blood pres (more content not included)... Normal [facility] HbA1c (Bld)on 01-08-2025 Average glucose Estimated from glycated hemoglobin (Bld) [Mass/Vol] 137 mg/dL [facility] Comment on above: eAG: (Estimated aver age glucose) is a calculated value from HgbA1c and is containers sales representative of the average blood glucose level in the last 2-3 month period. HbA1c (Bld) [Mass fraction] 6.4 % High 4.3 - 5.6 % [facility] Comment on above: [place] Diabetes As sociation guidelines indicate that patients with HgbA1c in the range 5.7-6.4% are at increased risk for development of diabetes, and intervention by lifestyle modification may be beneficial. HgbA1c greater or equal to 6.5% is considered diagnostic of diabetes. Interpretation and review of laboratory results Abnormal [facility] Average glucose Estimated from glycated hemoglobin (Bld) [Mass/Vol] 137 mg/dL Normal [facility] Comment on above: Order Comment: Purnima tapia Type: BLOOD SPECIMEN Ordering Facility: [facility] Address: [address] [place] [address] Result Comment: eAG: (Estimated average glucose) is a calculated value from HgbA1c and is containers sales representative of the average blood glucose level in the last 2-3 month period. Performed By: #### 5 5454-3 #### [facility] CLIA [id number] [address] [place] [address] [place] HbA1c (Bld) [Mass fraction] 6.4 % High 4.3-5.6 [facility] Comment on above: Order Comment: Purnima tapia Type: BLOOD SPECIMEN Ordering Facility: [facility] Address: [address] [place] [address] Result Comment: [place] Diabetes Association guidelines indicate that patients with HgbA1c in the range 5.7-6.4% are at increased risk for development of diabetes, and intervention by lifestyle modification may be beneficial. HgbA1c greater or equal to 6.5% is considered diagnostic of diabetes. Performed By: #### 5 5454-3 #### [facility] CLIA [id number] [address] [place] [address] [place] CNOVon 07-12-2024 CNOV Office Visit (INTMWS) ERIKA YANCEY ([id number]) 1950 F Date Time Provider Department 07/12/24 9:20 AM JENNIFER GARAY INTULISES During your visit today, we recorded the following information about you: Pulse Blood pressure Weight 68/minute 156/77 70.8 kg Jennifer Garay MD 07/12/2024 12:48 PM Signed Erika Yancey is a 72 year old female who presents here today for Above Complaints.. Health Maintenance BP CONTROLLED (<130/80) DTAP,TDAP,TD(2 - Td or Tdap) ADVANCE DIRECTIVE DISCUSSION DEPRESSION ASSESSMENT MAMMOGRAM HPI Erika is a very pleasant 73-year-old woman with a past medical history of colon cancer, SVT and wide-complex tachycardia status post ablation, she also had paroxysmal A-fib which resolved after ablation, prediabetes and essential hypertension. Coloorectal cancer age 51- through a regular colonoscopy it was found. Last colonoscopy was in 2020, no polyps, repeat colonoscopy was to be in 2025. HTN: BP controlled today. Checks BP at home. Lisinopril at 30, 10 and 20 , and metoprolol 12.5 mgs bid, Compliant with medications. Denies any chest pain, palpitations, SOB, swelling in the feet. Careful with diet to avoid salt, trying to eat more fruits and vegetables, exercises regularly. Afib is well controlled after ablation not on anticoagulation. She is also taking tylenol in the morning and in the night. It does help with aches and pains and sleeping better. In the past month she has noticed some tingling in the tips of the toes and back of the legs, it is happening randomly when she sits or lays down. Few seconds at a time, and then resolves. The swelling in the ankle resolves and it is down. She also has some swelling in the right foot, when she is sitting, the swelling is very mild, and only on that side. There is no pain, tenderness in that area. 07/12/24: she has been watching what she eats , cutting down sweets and exercising more. Her bp is high today, she is on logging bp at home and it is in the range of 140 most times than not. She did not want to change or add bp today until she sees her boat operator in [place]. I think adding some Norvasc would be helpful to her. No problem-specific Assessment AND Plan notes found for this encounter. PAST MEDICAL HISTORY Diagnosis Date Diverticulitis of colon (without mention of hemorrhage)(562.11) HTN (hypertension) Malignant neoplasm of colon, unspecified site 2001 Colon cancer PAST SURGICAL HISTORY Procedure Laterality Date APPENDECTOMY COLECTOMY PARTIAL W/ANASTOMOSIS COLONOSCOPY FLX DX W/COLLJ SPEC WHEN PFRMD 03/25/06 Extensive diverticulosis/ patent anastomoses COLONOSCOPY FLX DX W/COLLJ SPEC WHEN PFRMD 02/02/08 Diverticulosis, no recurrance COLONOSCOPY FLX DX W/COLLJ SPEC WHEN PFRMD 03/19/11 COLONOSCOPY FLX DX W/COLLJ SPEC WHEN PFRMD 03-19-16 LIG/TRNSXJ FLP TUBE ABDL/VAG APPR UNI/BI OOPHORECTOMY PARTIAL/TOTAL UNI/BI 02/08/2002 PAST SURGICAL HISTORY OF 2006 BCC removed right leg PAST SURGICAL HISTORY OF 05/2009 BCC removed right scalp FAMILY HISTORY Problem Relation Age of Onset Stroke Maternal Grandfather Hypertension Father Hypertension Brother Hypertension Mother Coronary Artery Disease Maternal Grandfather Diabetes Maternal Grandmother Diabetes Mother Diabetes Brother Social History Tobacco Use Smoking status: Never Smokeless tobacco: Never Substance Use Topics Alcohol use: No Drug use: No Past medical history, appointments, medications, allergies reviewed. Pertinent Lab/Diagnostic Studies are reviewed and discussed today Current Outpatient Medications: amoxicillin-clavulan ate potassium (AUGMENTIN) 875-125 mg per tablet lisinopril (ZESTRIL) 30 mg tablet metoprolol tartrate, short acting, (LOPRESSOR) 25 mg tablet fluticasone (FLONASE) 50 mcg/actuation nasal spray cycloSPORINE (RESTASIS) 0.05 % ophthalmic emulsion methylcellulose(CITR UCEL 500 MG TAB) BIOTIN 800 MCG TAB MULTIVITAMIN TAB ASPIRIN 81 MG TAB Review of Systems CONSTITUTIONAL: No fevers, chills night sweats, unintended weight loss CARDIOVASCULAR: No chest pain, dyspnea, palpitations, orthopnea, PND, ankle edema. PULM: No dyspnea, unexplained cough. GI: No dysphagia/odynophagi a, problematic reflux, constipation, diarrhea, changes in stool habits, hematochezia, melena. : No new urinary complaints, including dysuria, gross hematuria or pyuria. NEURO: No new balance problems, peripheral weakness/paresthesia s or numbness of concern. Physical Exam BP 158/92 (BP Site: Left Arm) Pulse 68 Wt 70.8 kg (156 lb) SpO2 97% BMI 24.43 kg/m? General appearance: Well appearing, alert, in no acute distress, well nourished. Skin: Skin color, texture, turgor normal, no suspicious rashes or lesions Head: Normocephalic, no masses, lesions, tenderness or abnormalities Eyes: Anicteric sclera. Pupils are equally round (more content not included)... Normal [facility] HbA1c (Bld)on 07-09-2024 Average glucose Estimated from glycated hemoglobin (Bld) [Mass/Vol] 123 mg/dL Normal [facility] Comment on above: Order Comment: Purnima tapia Type: BLOOD SPECIMEN Ordering Facility: [facility] Address: [address] [place] [address] Result Comment: eAG: (Estimated average glucose) is a calculated value from HgbA1c and is containers sales representative of the average blood glucose level in the last 2-3 month period. Performed By: #### 5 5454-3 #### [facility] CLIA [id number] [address] [place] [address] [place] HbA1c (Bld) [Mass fraction] 5.9 % High 4.3-5.6 [facility] Comment on above: Order Comment: Purnima tapia Type: BLOOD SPECIMEN Ordering Facility: [facility] Address: [address] [place] [address] Result Comment: [place] Diabetes Association guidelines indicate that patients with HgbA1c in the range 5.7-6.4% are at increased risk for development of diabetes, and intervention by lifestyle modification may be beneficial. HgbA1c greater or equal to 6.5% is considered diagnostic of diabetes. Performed By: #### 5 5454-3 #### [facility] CLIA [id number] [address] [place], [place] [address] [address] [place] Cardiology Visit Reporton Cardiology Visit Report [facility] [address] [place] [address] OFFICE VISIT Date of Service: 03/23/24 MR#: [id number] Acct: [id number] Name: ERIKA YANCEY Rep #: [id number] : 1950 Provider: COTY fall Age/Sex: 73/F Location: [facility] Status: Signed HPI HPI History of Present Illness Details: This is a 73-year-old female that presents here today for a cardiovascular follow-up. She has a history of hypertension, hyperlipidemia, atrial fibrillation, wide-complex ventricular tachycardia and SVT. She did have an ablation with pulmonary vein isolation in 2019. She also follows EP team at [facility] in [place] ( ). She denies chest, arm, jaw, or neck discomfort. She states short lasting, occasional palpitations. She had an episode occurred after exercise, but not during exercise. She denies bilateral lower extremity edema. She denies claudication. She denies shortness of breath with activity, shortness of breath at rest, orthopnea, or PND. She denies chronic cough. She denies significant, sudden weight gain. She denies lightheadedness, dizziness, near-syncope, or syncope. She denies blood in urine, blood in stool, or epistaxis. He denies fever with chills. She denies myalgia. She denies fatigue. Her exercise level has remained stable. She states home blood pressures have been systolic 130s. Intake Vital Signs 04/04/23 10:03 03/23/24 08:27 Height 5 ft 7 in 5 ft 7 in Weight: 151 lb 156 lb BMI 23.6 24.4 BP 155/84 H 158/79 H Blood Pressure Location Lt brachial Lt brachial Position Sitting Sitting Respiration 18 16 Pulse 65 Pulse Source Monitor Monitor Pulse Oximetry (%) 99 Intake Visit Reasons: 1 Y FU Guest Services Associate Required: No Accompanied by: Self Is patient in pain?: No Allergies No Known Allergies Allergy (Verified 03/23/24 08:31) Medications ???Medication ???Instructions ???Recorded ???Confirmed ???Type fluticasone propionate 50 1 spray NASAL DAILY 03/24/17 03/23/24 History mcg/actuation nasal spray,suspension multivitamin 1 ea PO DAILY 03/24/17 03/23/24 History biotin 5,000 mcg disintegrating 10,000 mcg PO DAILY 01/09/19 03/23/24 History tablet cyclosporine 0.05 % eye drops in a 1 drp ophthalmic (eye) Q12H 01/09/19 03/23/24 History dropperette (Restasis) lactobacillus combination no.9 4 4,000 mmu cells PO DAILY 01/09/19 03/23/24 History billion cell capsule (Adult 50 Plus Probiotic) methylcellulose (with sugar) oral 1 ea PO DAILY stool softener 01/09/19 03/23/24 History powder packet aspirin 81 mg tablet,delayed 81 mg PO QDAY #90 tabs 04/17/20 03/23/24 Rx release (Adult Aspirin Regimen) metoprolol tartrate 25 mg tablet 12.5 mg (1/2 x 25 mg) PO BID #90 08/08/23 03/23/24 Rx tabs acetaminophen 650 mg 650 mg PO Q12H 03/23/24 03/23/24 History tablet,extended release (Tylenol 8 Hour) lisinopril 10 mg tablet 10 mg PO .COMPLEX #30 tabs 03/23/24 03/23/24 Rx lisinopril 20 mg tablet 20 mg PO .COMPLEX 90 days #90 tabs 03/23/24 03/23/24 Rx Have you fallen in the past year?: No PFSH Medical History (Updated 03/23/24 @ 08:44 by Marcell Rodriguez HEALTH UNIT CLERK, HEALTH UNIT CLERK-C) PAF (paroxysmal atrial fibrillation) Wears glasses Osteoarthritis Blackout History of diverticulitis Non-smoker Seasonal allergies History of echocardiogram History of stress test Essential (primary) hypertension Paroxysmal SVT (supraventricular tachycardia) (11/06/19) Abnormal nuclear stress test (12/24/18) Syncope Hx of skin cancer, basal cell History of colon cancer Palpitations Hyperlipidemia Surgical History H/O radiofrequency ablation for complex left atrial arrhythmia (11/06/19) History of appendectomy History of left heart catheterization (12/26/18) Status post surgical removal of malignant neoplasm of skin History of left oophorectomy (2001) History of colon resection (2001) Family History Father Diabetes Hyperlipidemia Atrial fibrillation Mother Diabetes Hyperlipidemia Myocardial infarction CAD (coronary artery disease) Social History Smoking Status: Never smoker ROS Const Const: Negative for fatigue, weakness, headache(s), daytime sleepiness or difficulty sleeping ENT ENT: Negative for headache(s), dizziness or Nosebleed/epistaxis Cardio Chest Pain: No Palpitations: Yes (related to Pickleball activity) feels like its: fast and pounding Edema: Right (foot/ankle at times) Muscle aches with walking: None Resp Respiratory: Negative for SOB with activity, SOB at rest, SOB orthopnea SOB lying down or Cough GI GI: Negative nausea, vomiting or heartburn G (more content not included)... Normal [facility] DBT Breast - bilateral scree vivienjaleesa 03-20-2024 IMPRESSION: NEGATIVE There is no mammographic evidence of malignancy. A 1 year screening mammogram is recommended. Kailee Smith M.D., jr/jose:03/20/2024 16:04:05 Laboratory Mechanical Technician(s): RT Brandi(R)(M), [facility] letter sent: Normal over 40 Mammogram BI-RADS: 1 Negative Multiple national specialty organizations have released breast cancer screening guidelines for women at average risk for developing breast cancer - guidelines that are based on both evidence and opinion, yet differ on when to start and how often to screen for breast cancer. With representation from Breast Imaging, Internal Medicine, Women's Health, Family Medicine, and Medical/Surgical Oncology, the [facility] has carefully reviewed the data and reached the following consensus: 1) All women should engage in shared decision-making with their providers to decide when to start and how often to screen; 2) All women should have the opportunity to start screening mammography at age 40; 3) For women ages 45-55, we recommend annual screening mammograms; 4) For women ages 55 and over, we support both the transition from an annual to a biennial interval if this aligns more with patient's values and preferences, or continuation with annual screening; 5) All women should discuss with their providers when to stop screening mammograms. Brick Setter Operator: Jose Transcribe Date/Time: Mar 20 2024 9:19A Dictated by: KAILEE SMITH MD This examination was interpreted and the report reviewed and electronically signed by: KAILEE SMITH MD on Mar 20 2024 4:04PM [facility] DIVISION OF RADIOLOGY * * *Final Report* * * DATE OF EXAM: Mar 20 2024 9:51AM [facility] [id number] - [facility] SCREENING [facility] / PROCEDURE REASON: Encounter for screening mammogram for malignant neoplasm of breast * * * * Physician Interpretation * * * * RESULT: #[id number] - [facility] SCREENING W [facility] BILATERAL DIGITAL SCREENING MAMMOGRAM TOMOSYNTHESIS WITH CAD: 03/20/2024 HISTORY: Encounter For Screening Mammogram For Malignant Neoplasm Of Breast / Screening Mammogram-Patient reports NO symptoms. /priors available for comparison. RESULT: TECHNIQUE: The study was acquired using full field digital technology and interpreted from soft copy. Digital Breast Tomosynthesis (DBT) images were obtained and used to assist in the interpretation of this examination. Current study was also evaluated with a Computer Aided Detection (CAD). Comparison is made to exams dated: 03/17/2023 mammogram, 03/10/2022 mammogram, 03/09/2021 mammogram, and 03/03/2020 mammogram - [facility]. The breasts are heterogeneously dense, which may obscure small masses. No significant masses, calcifications, or other findings are seen in either breast. There has been no significant interval change. DIVISION OF RADIOLOGY Provider, [facility] - 03/20/2024 * * *Final Report* * * DATE OF EXAM: Mar 20 2024 9:51AM [facility] [id number] - [facility] SCREENING W KUMAR / PROCEDURE REASON: Encounter for screening mammogram for malignant neoplasm of breast * * * * Physician Interpretation * * * * RESULT: #[id number] - [facility] SCREENING W [facility] BILATERAL DIGITAL SCREENING MAMMOGRAM TOMOSYNTHESIS WITH CAD: 03/20/2024 HISTORY: Encounter For Screening Mammogram For Malignant Neoplasm Of Breast / Screening Mammogram-Patient reports NO symptoms. /priors available for comparison. RESULT: TECHNIQUE: The study was acquired using full field digital technology and interpreted from soft copy. Digital Breast Tomosynthesis (DBT) images were obtained and used to assist in the interpretation of this examination. Current study was also evaluated with a Computer Aided Detection (CAD). Comparison is made to exams dated: 03/17/2023 mammogram, 03/10/2022 mammogram, 03/09/2021 mammogram, and 03/03/2020 mammogram - [facility]. The breasts are heterogeneously dense, which may obscure small masses. No significant masses, calcifications, or other findings are seen in either breast. There has been no significant interval change. IMPRESSION IMPRESSION: NEGATIVE There is no mammographic evidence of malignancy. A 1 year screening mammogram is recommended. Kailee Smith M.D., jr/jose:03/20/2024 16:04:05 Laboratory Mechanical Technician(s): RT Brandi(R)(M), [facility] letter sent: Normal over 40 Mammogram BI-RADS: 1 Negative Multiple national specialty organizations have released breast cancer screening guidelines for women at average risk for developing breast cancer - guidelines that are based on both evidence and opinion, yet differ on when to start and how often to screen for breast cancer. With representation from Breast Imaging, Internal Medicine, Women's Health, Family Medicine, and Medical/Surgical Oncology, the [facility] has carefully reviewed the data and reached the following consensus: 1) All women should engage in shared decision-making with their providers to decide when to start and how often to screen; 2) All women should have the opportunity to start screening mammography at age 40; 3) For women ages 45-55, we recommend annual screening mammograms; 4) For women ages 55 and over, we support both the transition from an annual to a biennial interval if this aligns more with patient's values and preferences, or continuation with annual screening; 5) All women should discuss with their providers when to stop screening mammograms. Brick Setter Operator: Jose Transcribe Date/Time: Mar 20 2024 9:19A Dictated by: KAILEE SMITH MD This examination was interpreted and the report reviewed and electronically signed by: KAILEE SMITH MD on Mar 20 2024 4:04PM EST [facility] Radiology Study observation (narrative) [facility] DBT Breast - bilateral scree ningOrdered By: Ccf Provider on 03-20-2024 [facility] Cardiology Visit Reporton Cardiology Visit Report [facility] [address] [place], [place] [address] OFFICE VISIT Date of Service: 04/04/23 MR#: [id number] Acct: [id number] Name: ERIKA YANCEY Rep #: [id number] : 1950 Provider: COTY fall Age/Sex: 72/F Location: [facility] [facility] Status: Signed HPI HPI History of Present Illness Details: This is a 72-year-old female that presents here today for a cardiovascular follow-up. She has a history of hypertension, hyperlipidemia, atrial fibrillation, wide-complex ventricular tachycardia and SVT. She did have an ablation with pulmonary vein isolation in 2019. You follow [facility] in [place] ( ). She denies chest, arm, jaw, or neck discomfort. She states short lasting, occasional palpitations. She had an episode occurred after exercise, but not during exercise. She denies bilateral lower extremity edema. She denies claudication. She denies shortness of breath with activity, shortness of breath at rest, orthopnea, or PND. She denies chronic cough. She denies significant, sudden weight gain. She denies lightheadedness, dizziness, near-syncope, or syncope. She denies blood in urine, blood in stool, or epistaxis. He denies fever with chills. She denies myalgia. She denies fatigue. Her exercise level has remained stable. She states home blood pressures have been systolic 130s. Intake Vital Signs 01/28/22 07:08 04/04/23 10:03 Height 5 ft 7 in 5 ft 7 in Weight: 151 lb BMI 23.6 BP 155/84 H Blood Pressure Location Lt brachial Position Sitting Respiration 18 Pulse 65 Pulse Source Monitor Pulse Oximetry (%) 99 Intake Visit Reasons: 1 YR FU Guest Services Associate Required: No Is patient in pain?: No Allergies No Known Allergies Allergy (Verified 01/28/22 09:01) Medications fluticasone propionate 50 mcg/actuation nasal spray,suspension 1 spray NASAL DAILY 03/24/17 [History Confirmed 04/04/23] multivitamin 1 ea PO DAILY 03/24/17 [History Confirmed 04/04/23] biotin 5,000 mcg disintegrating tablet 10,000 mcg PO DAILY 01/09/19 [History Confirmed 04/04/23] cyclosporine 0.05 % eye drops in a dropperette (Restasis) 1 drp ophthalmic (eye) Q12H 01/09/19 [History Confirmed 04/04/23] lactobacillus combination no.9 4 billion cell capsule (Adult 50 Plus Probiotic) 4,000 mmu cells PO DAILY 01/09/19 [History Confirmed 04/04/23] methylcellulose (with sugar) oral powder packet 1 ea PO DAILY stool softener 01/09/19 [History Confirmed 04/04/23] aspirin 81 mg tablet,delayed release (Adult Aspirin Regimen) 81 mg PO QDAY #90 tabs 04/17/20 [Rx Confirmed 04/04/23] metoprolol tartrate 25 mg tablet 12.5 mg (1/2 x 25 mg) PO BID #90 tabs 09/21/22 [Rx Confirmed 04/04/23] lisinopril 20 mg tablet 20 mg PO DAILY #90 tabs 01/25/23 [Rx Confirmed 04/04/23] PFSH Medical History Abnormal nuclear stress test (12/24/18) Blackout Essential (primary) hypertension History of colon cancer History of diverticulitis History of echocardiogram History of stress test Hx of skin cancer, basal cell Hyperlipidemia Non-smoker Osteoarthritis PAF (paroxysmal atrial fibrillation) Palpitations Paroxysmal SVT (supraventricular tachycardia) (11/06/19) Seasonal allergies Syncope Wears glasses Surgical History H/O radiofrequency ablation for complex left atrial arrhythmia (11/06/19) History of appendectomy History of colon resection (2001) History of left heart catheterization (12/26/18) History of left oophorectomy (2001) Status post surgical removal of malignant neoplasm of skin Family History Father Diabetes Hyperlipidemia Atrial fibrillation Mother Diabetes Hyperlipidemia Myocardial infarction CAD (coronary artery disease) Social History Smoking Status: Never smoker ROS Const Const: Negative for fatigue, weakness, body ache, fever(s) or chills ENT ENT: Negative for dizziness or Nosebleed/epistaxis Cardio Chest Pain: No Palpitations: Yes Edema: None Muscle aches with walking: None Resp Respiratory: Negative for SOB with activity, SOB at rest, SOB orthopnea SOB lying down, Cough or paroxysmal nocturnal dyspnea GI GI: Negative nausea, vomiting blood/hematemesis, bright, red blood in stools or black,tarry stools : Negative for hematuria or frequent nighttime urination/ nocturia Musc Musc: Negative for muscle aches/ myalgia Skin Skin: Negative non-healing lesions or rash Neuro Neuro: Negative for dizziness, lightheadedness, near syncope, syncope, orthostatic symptoms or weakness Endo Endo: Negative for fatigue Allergy Allergy/Immunology: Negative for rash Card (more content not included)... Normal [facility] SCREENING [facility] 03-17 [facility] SCREENINGon 03-10-2022 [facility] Vital Signs Date Time Vital Sign Value Performing Clinician Faci lishay 04-15-2025 11:34-0400 Body height 172 cm Jennifer Garay MD Work Phone: [facility] 04-15-2025 11:34-0400 Body mass index (BMI) [Ratio] 23.92 kg/m2 Jennifer Garay MD Work Phone: [facility] 04-15-2025 11:34-0400 Body weight 70.76 kg Jennifer Garay MD Work Phone: [facility] 04-15-2025 11:34-0400 Diastolic blood pressure 80 mm[Hg] Jennifer Garay MD Work Phone: [facility] 04-15-2025 11:34-0400 Heart rate 68 /min Jennifer Garay MD Work Phone: [facility] 04-15-2025 11:34-0400 Respiratory rate 16 /min Jennifer Garay MD Work Phone: [facility] 04-15-2025 11:34-0400 SaO2% (BldA) [Mass fraction] 98 % Jennifer Garay MD Work Phone: [facility] 04-15-2025 11:34-0400 Systolic blood pressure 138 mm[Hg] Jennifer Garay MD Work Phone: [facility] 07-12-2024 10:18-0400 Diastolic blood pressure 77 mm[Hg] Jennifer Garay MD Work Phone: [facility] 07-12-2024 10:18-0400 Systolic blood pressure 156 mm[Hg] Jennifer Garay MD Work Phone: [facility] 07-12-2024 09:29-0400 Body mass index (BMI) [Ratio] 24.43 kg/m2 Jennifer Garay MD Work Phone: [facility] 07-12-2024 09:29-0400 Body weight 70.76 kg Jennifer Garay MD Work Phone: [facility] 07-12-2024 09:29-0400 Heart rate 68 /min Jennifer Garay MD Work Phone: [facility] 07-12-2024 09:29-0400 SaO2% (BldA) [Mass fraction] 97 % Jennifer Garay MD Work Phone: [facility] 04-10-2024 10:41-0400 Body height 170.2 cm Jennifer Garay MD Work Phone: [facility] 04-10-2024 10:41-0400 Body mass index (BMI) [Ratio] 24.12 kg/m2 Jennifer Garay MD Work Phone: [facility] 04-10-2024 10:41-0400 Body weight 69.85 kg Jennifer Garay MD Work Phone: [facility] 04-10-2024 10:41-0400 Diastolic blood pressure 80 mm[Hg] Jennifer Garay MD Work Phone: [facility] 04-10-2024 10:41-0400 Heart rate 72 /min Jennifer Garay MD Work Phone: [facility] 04-10-2024 10:41-0400 Respiratory rate 16 /min Jennifer Garay MD Work Phone: [facility] 04-10-2024 10:41-0400 Systolic blood pressure 130 mm[Hg] Jennifer Garay MD Work Phone: [facility] 02-01-2023 09:53-0400 Body height 170.2 cm Jennifer Garay MD Work Phone: [facility] 02-01-2023 09:53-0400 Body temperature 97.9 [degF] Jennifer Garay MD Work Phone: [facility] 02-01-2023 09:53-0400 Body weight 68.49 kg Jennifer Garay MD Work Phone: [facility] 02-01-2023 09:53-0400 Diastolic blood pressure 70 mm[Hg] Jennifer Garay MD Work Phone: [facility] 02-01-2023 09:53-0400 Heart rate 73 /min Jennifer Garay MD Work Phone: [facility] 02-01-2023 09:53-0400 Respiratory rate 12 /min Jennifer Garay MD Work Phone: [facility] 02-01-2023 09:53-0400 SaO2% (BldA) [Mass fraction] 98 % Jennifer Garay MD Work Phone: [facility] 02-01-2023 09:53-0400 Systolic blood pressure 128 mm[Hg] Jennifer Garay MD Work Phone: [facility] 07-21-2022 09:02-0400 Body height 170.2 cm Jennifer Garay MD Work Phone: [facility] 07-21-2022 09:02-0400 Body temperature 99.1 [degF] Jennifer Garay MD Work Phone: [facility] 07-21-2022 09:02-0400 Body weight 69.85 kg Jennifer Garay MD Work Phone: [facility] 07-21-2022 09:02-0400 Diastolic blood pressure 72 mm[Hg] Jennifer Garay MD Work Phone: [facility] 07-21-2022 09:02-0400 Heart rate 72 /min Jennifer Garay MD Work Phone: [facility] 07-21-2022 09:02-0400 Respiratory rate 12 /min Jennifer Garay MD Work Phone: [facility] 07-21-2022 09:02-0400 SaO2% (BldA) [Mass fraction] 99 % Jennifer Garay MD Work Phone: [facility] 07-21-2022 09:02-0400 Systolic blood pressure 130 mm[Hg] Jennifer Garay MD Work Phone: [facility] Encounters Encounter Date Encounter Type Care Provider Facility Start: 04-15-2025 End: 04-15-2025 Office outpatient visit 25 minutes Jennifer Garay MD Work Phone: Internal [facility] [employer] Comment on above: Essential hypertensi on (Primary Dx); Medicare annual wellness visit, subsequent; Paroxysmal A-fib (HCC); Prediabetes; Mixed hyperlipidemia; Constipation, unspecified constipation type Start: 04-15-2025 End: 04-15-2025 ambulatory JENNIFER GANFILIPE Facility:[facility] Start: 04-15-2025 End: 04-15-2025 Patient encounter procedure Jennifer Garay MD Work Phone: [facility] Work Phone: Start: 04-09-2025 End: 04-[facility] Start: 04-02-2025 End: 04-05-2025 ambulatory Jennifer Garay MD Work Phone: [facility] [place] Start: 03-26-2025 ambulatory JENNIFER GARAY Facility:[facility] Start: 03-26-2025 End: 03-26-2025 Subsequent hospital visit by physician Screen Mammo On License Of [facility] Comment on above: Encounter for screen ing mammogram for breast cancer [Z12.31] Start: 01-14-2025 End: 01-14-2025 ambulatory JENNIFER GARAY Facility:[facility] Start: 01-08-2025 End: 01-08-2025 ambulatory [facility] Facility:[facility] Start: 01-07-2025 End: 01-08-2025 ambulatory Jennifer Garay MD Work Phone: Internal Medicine [employer] [facility] [employer] Start: 01-07-2025 End: 01-08-2025 Patient encounter procedure Jennifer Garay MD Work Phone: [facility] [place] Comment on above: Lab work needed for this appointment? Start: 07-12-2024 End: 07-12-2024 Office outpatient visit 15 minutes Jennifer Garay MD Work Phone: Internal Medicine [employer] Comment on above: Uncontrolled hyperte nsion (Primary Dx); Prediabetes Start: 07-12-2024 End: 07-12-2024 [facility] Facility:[facility] Start: 07-09-2024 End: 07-09-2024 [facility] Start: 04-10-2024 End: 04-10-2024 Office outpatient visit 25 minutes Jennifer Garay MD Work Phone: Internal Medicine [employer] Comment on above: Medicare annual well ness visit, subsequent (Primary Dx); Malignant neoplasm of colon, unspecified part of colon (HCC); Paroxysmal A-fib (HCC); Prediabetes Start: 04-10-2024 End: 04-10-2024 Patient encounter procedure Jennifer Garay MD Work Phone: [facility] Start: 03-27-2024 ambulatory Jennifer Olmstead Work Phone: [facility] [place] Start: 03-23-2024 End: 03-23-2024 ambulatory Marcell Rodriguez NP Facility:[facility] Start: 03-20-2024 Documentation procedure Mammog ananya Coordinator [facility] Department Start: 03-20-2024 Letter encounter Mammography Coordinator [facility] Department Start: 03-20-2024 End: 03-20-2024 Subsequent hospital visit by physician Screen Mammo On License Of [facility] Comment on above: Encounter for screen ing mammogram for malignant neoplasm of breast [Z12.31] Start: 12-23-2023 ambulatory Paulette Rodriguez MA [facility] Comment on above: Population Health Na vigation Outreach ([employer] [facility] Start: 04-04-2023 End: 04-04-2023 ambulatory Jennifer Garay Facility:[facility] Start: 03-18-2023 Documentation procedure Mammog ananya [facility]inator [facility] Start: 03-18-2023 Letter encounter Mammography Coordinator [facility] Department Start: 03-17-2023 End: 03-17-2023 Subsequent hospital visit by physician Screen Mammo On License [facility] Comment on above: Breast cancer screen ing by mammogram [Z12.31] Start: 02-01-2023 End: 02-01-2023 Patient encounter procedure Jennifer Garay MD Work Phone: Internal Medicine [employer] Comment on above: Medicare annual well ness visit, subsequent (Primary Dx); Essential hypertension; Breast cancer screening by mammogram; Paroxysmal A-fib (HCC); Malignant neoplasm of colon, unspecified part of colon (HCC) Start: 07-21-2022 End: 07-21-2022 Patient encounter procedure Jennifer Garay MD Work Phone: [facility] [place] Comment on above: SVT (supraventricula r tachycardia) (HCC) (Primary Dx); Essential hypertension; Left ventricular hypertrophy; Left knee pain, unspecified chronicity; Hyperlipidemia, unspecified hyperlipidemia type; Prediabetes Start: 07-06-2022 ambulatory Jennifer Olmstead Work Phone: [facility] [place] Start: 03-10-2022 Documentation procedure Mammog ananya Coordinator [place] [facility] Start: 03-10-2022 Letter encounter Mammography Coordinator [facility] Department Start: 03-08-2022 Telephone encounter Jennifer storey MD Work Phone: Mammogram Comment on above: Orders Start: 01-23-2018 [facility] Procedures Date Procedure Procedure Detail Performing Clinician Start: 04-09-2025 Lipid 1996 panel - S yee or Plasma Jennifer Garay MD Work Phone: Start: 03-20-2024 Screening digital br [facility] bi Jennifer Garay MD Work Phone: Start: 03-17-2023 End: 03-17-2023 Mammography Jennifer Garay MD Work Phone: Start: 01-11-2023 Lipid 1996 panel - S yee or Plasma Screen Wstr Start: 03-10-2022 Mammography Jennifer storey MD Work Phone: Start: 05-05-2021 Adult depression scr eening assessment Jennifer Garay MD Work Phone: Start: 04-17-2021 Colonoscopy Jennifer storey MD Work Phone: Plan of Treatment Date Care Activity Detail Author Start: 05-18-2034 Urine microalbumin profile DTaP,Tdap,Td Vaccine (3 - Td or Tdap) [facility] Start: 04-09-2030 Lipid panel Lipid Screening [facility] Start: 04-09-2028 Diabetes Screening Diabetes Screenin g [facility] Start: 01-12-2028 Lipid 1996 panel - Serum or Plasma Lipid Screening [facility] Start: 01-12-2028 Lipid panel Lipid Screening [facility] Start: 01-12-2028 LIPID SCREEN LIPID SCREEN [facility] Start: 01-09-2028 Diabetes Screening Diabetes Screenin g [facility] Start: 07-09-2027 Diabetes Screening Diabetes Screenin g [facility] Start: 04-03-2027 Diabetes Screening Diabetes Screenin [facility] Start: 01-12-2027 LIPID SCREEN LIPID SCREEN [facility] Start: 04-21-2026 End: 04-21-2026 Patient encounter procedure 04/21/2026 8:00 AM EDT Office Visit [facility] [address] [place] [address] Jennifer Garay MD [address] [place] [address] Medicare Wellness [facility] Comment on above: Medicare Wellness Start: 04-17-2026 Colonoscopy COLONOSCOPY [facility] Start: 04-17-2026 COLORECTAL CANCER SCREENING COLORECTAL CANCER SCREENING [facility] Start: 04-17-2026 Screening for malign ant neoplasm of colon [facility] Start: 04-15-2026 Annual PCP Team Zookeeper jimmy Disease Visit Annual PCP Team Chronic Disease Visit [facility] Start: 03-26-2026 Screening for malign ant neoplasm of breast Mammogram Screening [facility] Start: 01-14-2026 Annual PCP Team Zookeeper jimmy Disease Visit Annual PCP Team Chronic Disease Visit [facility] Start: 01-11-2026 DIABETES SCREEN DIABETES SCREEN [facility] Start: 01-11-2026 Diabetes Screening Diabetes Screenin g [facility] Start: 2025 RSV Vaccine (1 - 1-d ose 75+ series) RSV Vaccine (1 - 1-dose 75+ series) [facility] Start: 07-12-2025 Annual PCP Team Zookeeper jimmy Disease Visit Annual PCP Team Chronic Disease Visit [facility] Start: 05-20-2025 Influenza vaccination Influenza Vacc ine (#1) [facility] Start: 04-15-2025 End: 04-15-2025 Patient encounter procedure 04/15/2025 11:40 AM EDT Office Visit [facility] [address] [place] [id number] Jennifer Garay MD [address] [place], [place] [address] MEDICARE WELLNESS [facility] Comment on above: MEDICARE WELLNESS Start: 04-10-2025 Annual PCP Team Zookeeper jimmy Disease Visit Annual PCP Team Chronic Disease Visit [facility] Start: 04-02-2025 End: 07-02-2025 CBC panel - Blood by Automated count COMPLETE BLOOD COUNT Lab Routine Medication management Expected: 04/02/2025, Expires: 07/02/2025 [facility] Work Phone: Comment on above: Expected: 04/02/2025 , Expires: 07/02/2025 Start: 03-20-2025 Screening for malign ant neoplasm of breast Mammogram Screening [facility] Start: 01-14-2025 End: 01-14-2025 Patient encounter procedure 01/14/2025 8:40 AM EDT Office Visit [facility] [address] [place] [id number] Jennifer Garay MD [address] [place] [id number] follow up [facility] Comment on above: follow up Start: 01-12-2025 DIABETES SCREEN DIABETES SCREEN [facility] Start: 09-19-2024 Medicare Advantage Annual Wellness Visit Medicare Advantage Annual Wellness Visit [facility] Start: 08-23-2024 Covid-19 Vaccine ( season) Covid-19 Vaccine () [facility] Start: 07-12-2024 End: 07-12-2024 Patient encounter procedure 07/12/2024 9:20 AM EDT Office Visit Internal Medicine [employer] [address] [place] [address] Jennifer Garay MD [address] [facility] [place] [place] [address] 3 mo follow up [facility] Comment on above: 3 mo follow up Start: 07-11-2024 End: 10-10-2024 Hemoglobin A1c in Blood HEMOGLOBIN A1C Lab Routine Prediabetes Expected: 07/11/2024, Expires: 10/10/2024 [facility] Work Phone: Comment on above: Expected: 07/11/2024 , Expires: 10/10/2024 Start: 05-20-2024 Influenza vaccination Influenza Vacc ine (#1) [facility] Start: 04-10-2024 End: 04-10-2024 Patient encounter procedure 04/10/2024 10:00 AM EDT Office Visit [facility] [address] [place] [address] Jennifer Garay MD [address] [facility] [place] [address] MEDICARE WELLNESS [id number] [facility] Comment on above: MEDICARE WELLNESS Z0 0.00 Start: 04-03-2024 End: 04-03-2024 ambulatory 04/03/2024 8:30 AM EDT Results Only [facility] [address] [place] [address] [facility] Start: 03-27-2024 End: 06-26-2024 Basic metabolic 2000 panel - Serum or Plasma BASIC METABOLIC PANEL Lab Routine Essential hypertension Expected: 03/27/2024, Expires: 06/26/2024 [facility] Work Phone: Comment on above: Expected: 03/27/2024 , Expires: 06/26/2024 Start: 03-27-2024 End: 06-26-2024 CBC panel - Blood by Automated count COMPLETE BLOOD COUNT Lab Routine Medication management Expected: 03/27/2024, Expires: 06/26/2024 [facility] Comment on above: Expected: 03/27/2024 , Expires: 06/26/2024 Start: 03-27-2024 End: 06-26-2024 Hemoglobin A1c in Blood HEMOGLOBIN A1C Lab Routine Medication management Expected: 03/27/2024, Expires: 06/26/2024 [facility] Comment on above: Expected: 03/27/2024 , Expires: 06/26/2024 Start: 03-17-2024 Mammography [facility] Start: 03-17-2024 Screening for malign ant neoplasm of breast Mammogram Screening [facility] Start: 02-02-2024 ANNUAL PCP TEAM FAST FOOD SERVER JIMMY DISEASE VISIT ANNUAL PCP TEAM CHRONIC DISEASE VISIT [facility] Start: 02-02-2024 BP CONTROLLED (<130/80) BP CONTROLLE D (<130/80) [facility] Start: 10-10-2023 Covid-19 Vaccine () Covid-19 Vaccine () [facility] Start: 09-19-2023 Advance Directive Discussion Advance Directive Discussion [facility] Start: 09-19-2023 Behavioral Health Screening Behavioral Health Screening [facility] Start: 07-21-2023 ANNUAL PCP TEAM FAST FOOD SERVER JIMMY DISEASE VISIT ANNUAL PCP TEAM CHRONIC DISEASE VISIT [facility] Start: 05-20-2023 Covid-19 Vaccine () Covid-19 Vaccine () [facility] Start: 05-20-2023 Influenza vaccination C [facility] Start: 03-10-2023 Mammography MAMMOGRAM [facility] Start: 01-18-2023 ANNUAL PCP TEAM FAST FOOD SERVER JIMMY DISEASE VISIT ANNUAL PCP TEAM CHRONIC DISEASE VISIT [facility] Start: 01-18-2023 End: 03-20-2023 Comprehensive metabolic 2000 panel - Serum or Plasma COMP METABOLIC PANEL Lab Routine Essential hypertension Expected: 01/18/2023, Expires: 03/20/2023 [facility] Work Phone: Comment on above: Expected: 01/18/2023 , Expires: 03/20/2023 Start: 01-18-2023 End: 03-20-2023 Hemoglobin A1c in Blood HGB A1C Lab Routine Prediabetes Expected: 01/18/2023, Expires: 03/20/2023 [facility] Work Phone: Comment on above: Expected: 01/18/2023 , Expires: 03/20/2023 Start: 01-18-2023 End: 03-20-2023 Lipid 1996 panel - Serum or Plasma LIPID PANEL BASIC Lab Routine Essential hypertension Hyperlipidemia, unspecified hyperlipidemia type Expected: 01/18/2023, Expires: 03/20/2023 [facility] Work Phone: Comment on above: Expected: 01/18/2023 , Expires: 03/20/2023 Start: 09-19-2022 ADVANCE DIRECTIVE DISCUSSION ADVANCE DIRECTIVE DISCUSSION [facility] Start: 07-06-2022 End: 09-05-2022 CBC panel - Blood by Automated count CBC Lab Routine Medication management Expected: 07/06/2022, Expires: 09/05/2022 [facility] Work Phone: Comment on above: Expected: 07/06/2022 , Expires: 09/05/2022 Start: 07-06-2022 End: 09-05-2022 SCHEDULE LAB TESTING SCHEDULE LAB TESTING Lab Routine Expected: 07/06/2022, Expires: 09/05/2022 [facility] Work Phone: Comment on above: Expected: 07/06/2022 , Expires: 09/05/2022 Start: 05-05-2022 Adult depression screening assessment DEPRESSION SCREENING [facility] Start: 09-19-2021 ADVANCE DIRECTIVE DISCUSSION ADVANCE DIRECTIVE DISCUSSION [facility] Start: 09-19-2021 DEPRESSION ASSESSMENT DEPRESSION ASS ESSMENT [facility] Start: 11-26-2020 Urine microalbumin profile [facility] Start: 03-16-2018 FECAL OCCULT BLOOD FECAL OCCULT BLOO D [facility] Start: 03-16-2018 Screening for malign ant neoplasm of colon Fecal Occult Blood [facility] Start: 2010 RSV Vaccine (1 - 1-d ose 60+ series) RSV Vaccine (1 - 1-dose 60+ series) [facility] Start: 1995 COLOGUARD (FIT-DNA) COLOGUARD (FIT-D NA) [facility] Start: [address] COLONOGRAPHY [facility] Start: 1995 Screening for malign ant neoplasm of colon [facility] Start: 1995 SIGMOIDOSCOPY SIGMOIDOSCOPY [facility] Start: 1968 Anxiety Screening Anxiety Screening [facility] Start: 1968 BP CONTROLLED (<130/80) BP CONTROLLE D (<130/80) [facility] Start: 1968 Depression Screening Depression Scre ening [facility] End: 01-21-2025 DBT Breast - bilateral screening [facility] Radiology Routine Encounter for screening mammogram for malignant neoplasm of breast 1 Occurrences starting 12/23/2023 until 01/21/2025 [facility] Work Phone: Comment on above: 1 Occurrences starti ng 12/23/2023 until 01/21/2025 DBT Breast - bilater al screening [facility] Radiology Routine Encounter for screening mammogram for breast cancer 03/26/2025 9:13 AM EDT [facility] Work Phone: End: 01-08-2026 Hemoglobin A1c in Blood HEMOGLOBIN A1C Lab Routine Prediabetes Every 3 months for 24 Occurrences starting 01/08/2025 until 01/08/2026, 1 completed [facility] Work Phone: Comment on above: Every 3 months for 2 4 Occurrences starting 01/08/2025 until 01/08/2026, 1 completed End: 03-02-2024 [facility] SCRE[facility]ING [facility] Radiology Routine Breast cancer screening by mammogram 1 Occurrences starting 02/01/2023 until 03/02/2024 [facility] Work Phone: Comment on above: 1 Occurrences starti ng 02/01/2023 until 03/02/2024 [facility] Immunizations Immunization Date Immunization Notes Care Provider Govind mancuso 06-28-2024 COVID-19 original vaccine, age 12+ yr, monovalent (PFIZER-BIONTECH - PURPLE TOP) Jennifer Garay MD Work Phone: [facility] 06-28-2024 influenza, high dose seasonal, preservative-free Jennifer Garay MD Work Phone: [facility] 06-28-2024 influenza virus vacc ine, unspecified formulation Screen [facility] 05-29-2024 pneumococcal polysaccharide vaccine, 23 valent Jennifer Garay MD Work Phone: [facility] 05-18-2024 tetanus toxoid, redu hermila diphtheria toxoid, and acellular pertussis vaccine, adsorbed Jennifer Garay MD Work Phone: [facility] 06-04-2023 influenza virus vacc ine, unspecified formulation Screen [facility] 06-08-2022 influenza virus vacc ine, unspecified formulation Screen [facility] 12-21-2021 COVID-19 vaccine, ag e 12+ yr (PFIZER-BIONTECH - PURPLE TOP) Jennifer Garay MD Work Phone: [facility] Work Phone: 09-15-2021 zoster vaccine recombinant Jennifer Garay MD Work Phone: [facility] 06-24-2021 COVID-19 vaccine, ag e 12+ yr (PFIZER-BIONTECH - PURPLE TOP) Jennifer Garay MD Work Phone: [facility] Work Phone: 06-17-2021 influenza, high dose seasonal, preservative-free Jennifer Garay MD Work Phone: [facility] Work Phone: 05-14-2021 zoster vaccine recombinant Jennifer Garay MD Work Phone: [facility] 11-19-2020 COVID-19 vaccine, ag e 12+ yr (PFIZER-BIONTECH - PURPLE TOP) Jennifer Garay MD Work Phone: [facility] 10-22-2020 COVID-19 vaccine, ag e 12+ yr (PFIZER-BIONTECH - PURPLE TOP) Jennifer Garay MD Work Phone: [facility] 10-26-2016 pneumococcal polysaccharide vaccine, 23 valent Jennifer Garay MD Work Phone: [facility] Work Phone: 02-06-2016 pneumococcal conjuga te vaccine, 13 valent Jennifer Garay MD Work Phone: [facility] 06-12-2015 influenza virus vacc ine, whole virus Jennifer Garay MD Work Phone: [facility] 06-24-2014 influenza, seasonal, injectable Jennifer Garay MD Work Phone: [facility] 06-15-2013 influenza virus vacc ine, unspecified formulation Jennifer Garay MD Work Phone: [facility] 06-03-2012 influenza virus vacc ine, unspecified formulation Jennifer Garay MD Work Phone: [facility] 02-29-2012 zoster vaccine, live Jennifer Garay MD Work Phone: [facility] 06-24-2011 influenza virus vacc ine, unspecified formulation Jennifer Garay MD Work Phone: [facility] 11-26-2010 tetanus toxoid, redu hermila diphtheria toxoid, and acellular pertussis vaccine, adsorbed Jennifer Garay MD Work Phone: [facility] Payers Date Payer Category Payer Self-pay 2022 Medicare (Managed Care) [id number]. [id number] 2022 Private Health Insurance [id number] 2016 Unknown [employer] [place] MEDICARE SUPPLEMENT [id number] 2016-Present [phone] 3300 [employer] [place] [place] [address] Indemnity [id number] 2016 Unknown [employer] [place] [employer] [place] [employer] SUPPLEMENT [id number] 2016-Present [phone] 33[address] [place] [address] Indemnity [id number] 2015 Medicare MEDICARE MEDICAR E A AND B [id number] 2015-Present [phone] [place] [address] Medicare [id number] 2015 Medicare [id number] Unknown [id number] Unknown [id number] Social History Date Type Detail Facility Start: 06-09-2011 Tobacco smoking status NHIS Never sm oked tobacco [facility] Start: 01-18-2022 End: 01-14-2025 Alcohol intake Current non-drinker of alcohol (finding) [facility] Start: 05-05-2021 End: 01-12-2023 History SDOH Alcohol Frequency 1 [facility] Start: 04-29-2020 History SDOH Alcohol Std Drinks 98 [facility] Start: 05-05-2021 End: 01-12-2023 History SDOH Social Connections Phone 5 [facility] Start: 05-05-2021 End: 01-12-2023 History SDOH Social Connections Religious 3 [facility] Start: 05-05-2021 End: 01-12-2023 History SDOH Physical Activity DPW 7 [facility] Start: 05-05-2021 End: 01-12-2023 History SDOH Physical Activity MPS 9 [facility] Start: 05-05-2021 End: 01-12-2023 History SDOH [facility] Start: 04-29-2020 Education 18 [facility] Start: 1950 Sex Assigned At Not on file C [facility] Start: 02-28-2022 End: 07-21-2022 Exposure to SARS-CoV-2 (event) Not sure [facility] Start: 06-09-2011 Tobacco use and exposure Smoke less tobacco non-user [facility] Start: 01-12-2023 History SDOH Alcohol Std Drinks 0 [facility] Start: 01-12-2023 End: 02-01-2023 History of Social function [facility] Start: 01-12-2023 End: 02-01-2023 Social connection and isolation panel [facility] Do you belong to any clubs or organizations such as mormon groups, unions, fraternal or athletic groups, or school groups? Yes [facility] Are you now , , , , never or living with a partner? [facility] How often to you hav e a drink containing alcohol? Never [facility] How many standard dr inks containing alcohol do you have on a typical day? Patient does not drink [facility] Do you feel stress - tense, restless, nervous, or anxious, or unable to sleep at night because your mind is troubled all the time - these days [OSQ] Not at all [facility] (I/We) worried andrés er (my/our) food would run out before (I/we) got money to buy more. Never true [facility] In the past 12 month s, was there a time when you were not able to pay the mortgage or rent on time? No [facility] Functional Status Date Assessment Result Facility 02-24-2015 Are you deaf, or do you have serious difficulty hearing No 02/24/2015 10:01 AM Melva Jasmine Ma No [facility] 02-24-2015 Are you blind, or do you have serious difficulty seeing, even when wearing glasses No 02/24/2015 10:01 AM Melva Jasmine Ma No [facility] 02-24-2015 Do you have serious difficulty walking or climbing stairs No 02/24/2015 10:01 AM Melva Jasmine Ma No [facility] 02-24-2015 Do you have difficul ty dressing or bathing No 02/24/2015 10:01 AM EDT RavenMelva jimenez Ma No [facility] 02-24-2015 Because of a physica l, mental, or emotional condition, do you have difficulty doing errands alone such as visiting a physician's office or shopping No 02/24/2015 10:01 AM EDT Melva Gillespie Ma [facility] Mental Status Date Assessment Result Facility 02-24-2015 Because of a physica l, mental, or emotional condition, do you have serious difficulty concentrating, remembering, or making decisions No 02/24/2015 10:01 AM EDT Verna EliasMelva [facility] Clinical Notes 03-08-2022 to 04-15-2025 Jennifer Garay MD - 04/15/2025 12:02 PM Alex Graham Mammo [facility] - 03/26/2025 8:30 AM Jennifer Bose MD - 07/12/2024 9:51 AM Jennifer Bose MD - 04/10/2024 10:00 AM EDT Note Date & Type Note Facility 04-15-2025 Note HNO ID: [id number] Author: JENNIFER GARAY MD Service: ? Author Type: Physician Type: Progress Notes Filed: 04/15/2025 12:45 Note Text: Erika Yancey is a 74 year old female here for a Medicare wellness visit. Medicare Health Risk Assessment General Health Very good Exercise: Minutes/Day 80 min Exercise: Days/Week 7 days Alcohol: Daily Use Never Alcohol: Drinks/Day Patient does not drink Alcohol: 6 or more drinks Never Feel off balance No Concerns: Teeth/Dentures Yes Concerns: Sexual function No Troubled by feelings None of the above Frequency: Eating healthy diet Nearly every day ADLs requiring help None of the above Safety precautions in home/vehicle Yes Smoke, vape, chews tobacco No Difficulty hearing No Difficulty seeing No Current Providers Specialists: I have reviewed specialist-related care of the patient in the medical record. Medical/Family history review Reviewed and updated problem list, medical/surgical/family/social history, medications, and allergies. Opioid use review Opioid Medications (last 90 days) No data to display Anxiety/Depression screening FABIENNE-7 Score: 0. Recommendation: no further intervention at this time Cognitive screening Mini Cog Score: 5 Cognitive screening reviewed and No further action needed (score 3-5). Functional Observation Was the patient's Timed Up AND Go test unsteady or >= 12 seconds? No Advance Care Planning Surrogate decision maker and/or advance care plan documented Measurements BP 138/80 Pulse 68 Resp 16 Ht 172 cm (5' 7.72) Wt 70.8 kg (156 lb) SpO2 98% BMI 23.92 kg/m? Vision Screening: Follows with optometry/ophthalmology Assessment/Plan Medicare annual wellness visit, subsequent (Z00.00) - Counseled on healthy diet and regular exercise - Fall avoidance information provided - Personalized prevention plan provided. Reason for Visit HPI Erika Yancey is a 74-year-old female with a history of paroxysmal atrial fibrillation, hypercholesterolemia, and elevated blood pressure, presenting for a Medicare Annual Wellness Visit. Erika reports improved blood pressure readings, with fewer measurements in the 140s compared to previous recordings. She attributes this improvement to her current medication regimen, which includes amlodipine. She is requesting a 90-day supply with three refills for both amlodipine and rosuvastatin, as she finds monthly pharmacy visits inconvenient. She exercises daily for 80 minutes, 7 days a week, and rates her health as very good. She denies alcohol consumption, smoking, or difficulties with hearing or vision. She has been taking rosuvastatin 10 mg since the spring and notes significant improvement in her lipid levels. She is also on aspirin for paroxysmal atrial fibrillation. Recent lab results show a decrease in A1c from 6.0 to 5.9, stable glucose levels, and kidney function at 91. Her weight remains stable, with minor fluctuations attributed to bowel movements. She reports sluggish and dry bowels, requiring focused management. She has made dietary changes, reducing dessert and pasta intake, which she believes contributed to the improvement in her A1c levels. Social History Tobacco Use Smoking status: Never Smokeless tobacco: Never Substance Use Topics Alcohol use: No Drug use: No Past medical history, appointments, medications, allergies reviewed. Pertinent Lab/Diagnostic Studies are reviewed and discussed today Current Outpatient Medications: rosuvastatin (CRESTOR) 10 mg tablet amLODIPine (NORVASC) 2.5 mg tablet lisinopril (ZESTRIL) 20 mg tablet acetaminophen (TYLENOL ARTHRITIS ORAL) metoprolol tartrate, short acting, (LOPRESSOR) 25 mg tablet fluticasone (FLONASE) 50 mcg/actuation nasal spray cycloSPORINE (RESTASIS) 0.05 % ophthalmic emulsion methylcellulose(CITRUCEL 500 MG TAB) BIOTIN 800 MCG TAB MULTIVITAMIN TAB ASPIRIN 81 MG TAB Health Maintenance Depression Screening Anxiety Screening Medicare Advantage Annual Wellness Visit@ Review Of Systems Eyes: (-) visual difficulty Ears/Nose/Mouth/Throat: (-) hearing difficulty Gastrointestinal: (+) constipation Physical Exam BP 138/80 Pulse 68 Resp 16 Ht 172 cm (5' 7.72) Wt 70.8 kg (156 lb) SpO2 98% BMI 23.92 kg/m? GENERAL: NAD, alert and oriented SKIN: unremarkable, no rash or skin lesions. HEAD: normocephalic EYES: PERRLA, EOMI, conjunctiva clear EARS: external ears normal, canals clear, TM's normal. LUNGS: Clear to auscultation bilaterally, no wheezes/rhonchi/rales. HEART: Regular rate and rhythm, no murmurs. No ectopy. EXTREMITIES: Normal, No deformities, No skin discoloration, No edema. Labs: (Today) - A1c: 6.0 - Glucose: Slightly elevated - eGFR: 91 mL/min/1.73 m2 - Lipid panel: Improved compared to previous results Assessment and Plan 1. Medicare annual wellness visit, subsequent (Z00.00) Completed. Patient is in excellent h (more content not included)... [facility] 04-15-2025 History of Presen t illness Narrative Images from the original note were not included. Erika Yancey is a 74 year old female here for a Medicare wellness visit. Medicare Health Risk Assessment General Health Very good Exercise: Minutes/Day 80 min Exercise: Days/Week 7 days Alcohol: Daily Use Never Alcohol: Drinks/Day Patient does not drink Alcohol: 6 or more drinks Never Feel off balance No Concerns: Teeth/Dentures Yes Concerns: Sexual function No Troubled by feelings None of the above Frequency: Eating healthy diet Nearly every day ADLs requiring help None of the above Safety precautions in home/vehicle Yes Smoke, vape, chews tobacco No Difficulty hearing No Difficulty seeing No Current Providers Specialists: I have reviewed specialist-related care of the patient in the medical record. Medical/Family history review Reviewed and updated problem list, medical/surgical/family/social history, medications, and allergies. Opioid use review Opioid Medications (last 90 days) No data to display Anxiety/Depression screening FABIENNE-7 Score: 0. Recommendation: no further intervention at this time Cognitive screening Mini Cog Score: 5 Cognitive screening reviewed and No further action needed (score 3-5). Functional Observation Was the patient's Timed Up & Go test unsteady or >= 12 seconds? No Advance Care Planning Surrogate decision maker and/or advance care plan documented Measurements BP 138/80 Pulse 68 Resp 16 Ht 172 cm (5' 7.72) Wt 70.8 kg (156 lb) SpO2 98% BMI 23.92 kg/m Vision Screening: Follows with optometry/ophthalmology Assessment/Plan Medicare annual wellness visit, subsequent (Z00.00) - Counseled on healthy diet and regular exercise - Fall avoidance information provided - Personalized prevention plan provided. Reason for Visit HPI rEika Yancey is a 74-year-old female with a history of paroxysmal atrial fibrillation, hypercholesterolemia, and elevated blood pressure, presenting for a Medicare Annual Wellness Visit. Erika reports improved blood pressure readings, with fewer measurements in the 140s compared to previous recordings. She attributes this improvement to her current medication regimen, which includes amlodipine. She is requesting a 90-day supply with three refills for both amlodipine and rosuvastatin, as she finds monthly pharmacy visits inconvenient. She exercises daily for 80 minutes, 7 days a week, and rates her health as very good. She denies alcohol consumption, smoking, or difficulties with hearing or vision. She has been taking rosuvastatin 10 mg since the spring and notes significant improvement in her lipid levels. She is also on aspirin for paroxysmal atrial fibrillation. Recent lab results show a decrease in A1c from 6.0 to 5.9, stable glucose levels, and kidney function at 91. Her weight remains stable, with minor fluctuations attributed to bowel movements. She reports sluggish and dry bowels, requiring focused management. She has made dietary changes, reducing dessert and pasta intake, which she believes contributed to the improvement in her A1c levels. Social History Tobacco Use Smoking status: Never Smokeless tobacco: Never Substance Use Topics Alcohol use: No Drug use: No Past medical history, appointments, medications, allergies reviewed. Pertinent Lab/Diagnostic Studies are reviewed and discussed today Current Outpatient Medications: rosuvastatin (CRESTOR) 10 mg tablet amLODIPine (NORVASC) 2.5 mg tablet lisinopril (ZESTRIL) 20 mg tablet acetaminophen (TYLENOL ARTHRITIS ORAL) metoprolol tartrate, short acting, (LOPRESSOR) 25 mg tablet fluticasone (FLONASE) 50 mcg/actuation nasal spray cycloSPORINE (RESTASIS) 0.05 % ophthalmic emulsion methylcellulose(CITRUCEL 500 MG TAB) BIOTIN 800 MCG TAB MULTIVITAMIN TAB ASPIRIN 81 MG TAB Health Maintenance Depression Screening Anxiety Screening Medicare Advantage Annual Wellness Visit@ Review Of Systems Eyes: (-) visual difficulty Ears/Nose/Mouth/Throat: (-) hearing difficulty Gastrointestinal: (+) constipation Physical Exam BP 138/80 Pulse 68 Resp 16 Ht 172 cm (5' 7.72) Wt 70.8 kg (156 lb) SpO2 98% BMI 23.92 kg/m GENERAL: NAD, alert and oriented SKIN: unremarkable, no rash or skin lesions. HEAD: normocephalic EYES: PERRLA, EOMI, conjunctiva clear EARS: external ears normal, canals clear, TM's normal. LUNGS: Clear to auscultation bilaterally, no wheezes/rhonchi/rales. HEART: Regular rate and rhythm, no murmurs. No ectopy. EXTREMITIES: Normal, No deformities, No skin discoloration, No edema. Labs: (Today) - A1c: 6.0 - Glucose: Slightly elevated - eGFR: 91 mL/min/1.73 m^2 - Lipid panel: Improved compared to previous results Assessment and Plan 1. Medicare annual wellness visit, subsequent (Z00.00) Completed. Patient is in excellent health, exercises daily, and has no issues with hearing or vision. Advanced directives are in place. - Follow-up in 6 months. - Scheduled next Medicare wellness visit for April next year. 2. Essential hypertension (I10) Blood pressure readings are improved, with fewer readings in the 140s. Currently managed with amlodipine. - Extended amlodipine prescription to 90 days with 3 refills. 3. Paroxysmal A-fib (HCC) (I48.0) Stable on aspirin therapy. 4. Prediabetes (R73.03) Hemoglobin A1c decreased from 6.0% to 5.9%. Patient has made dietary modifications, reducing sugar and pasta intake. - Continue current dietary modifications. - Next A1c check in 6 months. 5. Mixed hyperlipidemia (E78.2) Significant improvement in lipid profile since starting rosuvastatin 10 mg daily. - Extended rosuvastatin prescription to 90 days with 3 refills. 6. Constipation, unspecified constipation type (K59.00) Chronic issue, affecting weight fluctuations. Voice recognition software was used to compose this office note. Please excuse any unintended typographical errors. Recording using SureSpeak software for draft documentation of the visit was discussed with the patient/authorized containers sales representative; all questions welcomed and answered. Patient/authorized containers sales representative agreed to proceed Jennifer Garay MD documented in this encounter [facility] 04-02-2025 Note Patient Outreach (IN [facility]) ERIKA YANCEY ([id number]) 1950 F Date Time Provider Department 04/02/25 JENNIFER GARAY During your visit today, we recorded the following information about you: Allergies As of Date: 04/02/2025 Noted Allergy Reaction GRASS POLLEN 10/20/2005 POLLEN 10/20/2005 RAGWEED 10/20/2005 TREES 10/20/2005 Date Reviewed: 01/14/2025 Reviewed by: Adelita King MA - Fully Assessed Visit Diagnosis:Medication management [Z79.899] Order(s):COMPLETE BLOOD COUNT [SQCBC] Order #: [id number] FUTURE Prescriptions as of 04/05/2025 - lisinopril (ZESTRIL) 20 mg tablet Take 1 tablet by mouth two times a day. Per Dr. Hardwick - acetaminophen (TYLENOL ARTHRITIS ORAL) Take by mouth. - amLODIPine (NORVASC) 2.5 mg tablet Take 1 tablet by mouth once daily. - rosuvastatin (CRESTOR) 10 mg tablet Take 1 tablet by mouth daily at bedtime. - metoprolol tartrate, short acting, (LOPRESSOR) 25 mg tablet Takes half a pill 2 times a day - fluticasone (FLONASE) 50 mcg/actuation nasal spray Use 2 Sprays in each nostril once daily. - cycloSPORINE (RESTASIS) 0.05 % ophthalmic emulsion 1 Drop twice daily. - methylcellulose(CITRUCEL 500 MG TAB) daily - BIOTIN 800 MCG TAB Take one(1) tablet two(2) times daily. - MULTIVITAMIN TAB Take one(1) tablet daily. - ASPIRIN 81 MG TAB Take one (1) tablet daily . Problem List As Of Date 04/02/2025 Noted Resolved Malignant neoplasm of colon (HCC) [C18.9] IMPAIRED GLUCOSE BENJIE TEST [R73.09] DIVERTICULITIS OF COLON W/O BLEED [K57.32] Essential hypertension [I10] 10/20/2005 CHANGE OF BOWEL HABITS-CONSTIPATION [K59.00] 01/18/2008 DIVERTICULOSIS COLON - NO HEMORRHAGE [K57.30] 02/02/2008 Pruritus of external auditory canal [L29.9] 06/30/2015 Allergic rhinitis [J30.9] 02/06/2016 Left knee pain [M25.562] 03/03/2016 Cervicalgia [M54.2] 03/03/2016 Left ventricular hypertrophy [I51.7] 07/22/2017 SVT (supraventricular tachycardia) (HCC) [I47.1*01/22/2019 Wide-complex tachycardia (HCC) [R00.0] 01/22/2019 Paroxysmal A-fib (HCC) [I48.0] 01/22/2019 Encounter Status:Closed by LocalCustomer, PRODUSER on 04/05/25 [facility] 03-26-2025 History of Presen t illness Narrative Radiology Service Progress Note PATIENT NAME: Erika Yancey DATE OF SERVICE: March 26, 2025 TIME: 10:07 AM PATIENT IDENTITY VERIFICATION COMPLETED USING TWO (2) IDENTIFIERS: Name and Date of confirmed by patient verbally. FALL SCREENING: Has the patient had 2 falls in the last year or 1 fall with injury or currently using an Ambulatory Assistive Device (Walker, Cane, Wheelchair, Crutches, etc.)? No PATIENT GENDER DATA: Assigned female at . status: : No status: NO. 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: No RADIOLOGY DEPARTMENT: Mammography PERIPHERAL IV DATA: Not applicable SIGNED BY: Shirley Paz March 26, 2025 10:07 AM documented in this encounter [facility] 03-26-2025 Note HNO ID: [id number] Author: ALEX WANG Mammo Tech Service: ? Author Type: Technologist Type: Progress Notes Filed: 03/26/2025 10:07 Note Text: Radiology Service Progress Note PATIENT NAME: Erika Yancey DATE OF SERVICE: March 26, 2025 TIME: 10:07 AM PATIENT IDENTITY VERIFICATION COMPLETED USING TWO (2) IDENTIFIERS: Name and Date of confirmed by patient verbally. FALL SCREENING: Has the patient had 2 falls in the last year or 1 fall with injury or currently using an Ambulatory Assistive Device (Walker, Cane, Wheelchair, Crutches, etc.)? No PATIENT GENDER DATA: Assigned female at . status: : No status: NO. 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: No RADIOLOGY DEPARTMENT: Mammography PERIPHERAL IV DATA: Not applicable SIGNED BY: Shirley Paz March 26, 2025 10:07 AM [facility] 01-14-2025 Note HNO ID: [id number] Author: JENNIFER GARAY MD Service: ? Author Type: Physician Type: Progress Notes Filed: 01/14/2025 11:24 Note Text: Reason for Visit Follow up labs HPI Erika is a 74-year-old female with a history of elevated A1c, HTN, and hypercholesterolemia, presenting for follow-up. Erika reports her most recent hemoglobin A1c is 6.4%, which is consistent with previous readings. She has been monitoring her diet, particularly her sugar intake, but acknowledges a preference for carbohydrates such as pasta and bread. She plans to focus more on reducing carbohydrate intake over the next three months. She also notes limitations in her diet due to diverticulosis, which prevents her from consuming large amounts of leafy greens consecutively. She remains physically active, engaging in biking, pickleball, and walking. She expresses a desire to avoid medication for diabetes management if possible. Erika is currently on lisinopril 40 mg daily for HTN, divided into 20 mg in the morning and 20 mg in the evening. She monitors her blood pressure at home but has not checked it in the past two weeks. She reports that her boat operator in [place] increased her lisinopril dosage to 40 mg, but she feels it has not been effective in controlling her blood pressure. She is also taking metoprolol and aspirin. She recently underwent an echocardiogram and carotid duplex studies in [place], which she reports were unchanged from previous studies. She mentions a history of ablation and states that her boat operator performs an echocardiogram annually to monitor her cardiac function. She denies being on statin therapy and reports her cholesterol levels have been borderline, around 200-205 mg/dL, for a long time. She denies a strong family history of VT or CVA. Social History Tobacco Use Smoking status: Never Smokeless tobacco: Never Substance Use Topics Alcohol use: No Drug use: No Past medical history, appointments, medications, allergies reviewed. Pertinent Lab/Diagnostic Studies are reviewed and discussed today Current Outpatient Medications: metoprolol tartrate, short acting, (LOPRESSOR) 25 mg tablet fluticasone (FLONASE) 50 mcg/actuation nasal spray cycloSPORINE (RESTASIS) 0.05 % ophthalmic emulsion methylcellulose(CITRUCEL 500 MG TAB) BIOTIN 800 MCG TAB MULTIVITAMIN TAB ASPIRIN 81 MG TAB lisinopril (ZESTRIL) 20 mg tablet acetaminophen (TYLENOL ARTHRITIS ORAL) amLODIPine (NORVASC) 2.5 mg tablet rosuvastatin (CRESTOR) 10 mg tablet Health Maintenance Depression Screening Anxiety Screening BP Controlled (<130/80) Covid-19 Vaccine( season) Mammogram Screening@ Review Of Systems Ears/Nose/Mouth/Throat: (+) hearing changes Musculoskeletal: (+) joint pain Physical Exam BP 132/86 Pulse 72 Temp 36.2 ?C (97.1 ?F) (Temporal) Resp 12 Wt 70.6 kg (155 lb 9.6 oz) SpO2 99% BMI 24.37 kg/m? GENERAL: NAD, alert and oriented SKIN: unremarkable, no rash or skin lesions. HEAD: normocephalic EYES: PERRLA, EOMI, conjunctiva clear EARS: external ears normal, canals clear, TM's normal. NOSE/SINUSES: Nares normal. Septum midline. OROPHARYNX: lips, mucosa, and tongue normal, good dentition. No oral lesions noted. NECK: Supple, no lymphadenopathy, normal thyroid, no carotid bruits. LUNGS: Clear to auscultation bilaterally, no wheezes/rhonchi/rales. HEART: Regular rate and rhythm, no murmurs. No ectopy. EXTREMITIES: Normal, No deformities, No skin discoloration, No edema. NEURO: Awake, alert and oriented x3, cranial nerves II-XII grossly intact, normal gait, no involuntary motions Labs: (Today) A1c: 6.4 A1c: 5.9 A1c: 6.4 Imaging: (12/04) Echocardiogram: - Left Ventricular Ejection Fraction: 55-60% - Right Ventricle: Normal in size - Left Atrium: Normal in size - Right Atrium: Normal in size - Very mild aortic sclerosis without stenosis - Mild mitral regurgitation - No diastolic dysfunction Carotid Duplex Studies: - Right Internal Carotid Artery: Less than 50% stenosis - Left Internal Carotid Artery: Less than 50% stenosis - Right Internal Carotid Artery: Mild atherosclerotic plaque and calcification - Left Internal Carotid Artery: Mild atherosclerotic plaque and calcification - Right Common Carotid: No evidence of atherosclerotic plaque Assessment and Plan 1. Essential hypertension (I10) Blood pressure readings have been suboptimal despite current treatment with Lisinopril 40 mg daily, divided into 20 mg BID. Recent echocardiogram and carotid duplex studies were performed. - Initiate Norvasc (Amlodipine) at a low dose to enhance blood pressure control. - Educated patient on the mechanism of action of Amlodipine, including potential side effects such as peripheral edema and orthostatic hypotension. - Advised taking Lisinopril in the evening for optimal efficacy. - Follow-up in 3 months to reassess blood pressure control. 2 (more content not included)... [facility] 07-12-2024 Note HNO ID: [id number] Author: JENNIFER GARAY MD Service: ? Author Type: Physician Type: Progress Notes Filed: 07/12/2024 12:48 Note Text: Erika Yancey is a 72 year old female who presents here today for Above Complaints.. Health Maintenance BP CONTROLLED (<130/80) DTAP,TDAP,TD(2 - Td or Tdap) ADVANCE DIRECTIVE DISCUSSION DEPRESSION ASSESSMENT MAMMOGRAM HPI Erika is a very pleasant 73-year-old woman with a past medical history of colon cancer, SVT and wide-complex tachycardia status post ablation, she also had paroxysmal A-fib which resolved after ablation, prediabetes and essential hypertension. Coloorectal cancer age 51- through a regular colonoscopy it was found. Last colonoscopy was in 2020, no polyps, repeat colonoscopy was to be in 2025. HTN: BP controlled today. Checks BP at home. Lisinopril at 30, 10 and 20 , and metoprolol 12.5 mgs bid, Compliant with medications. Denies any chest pain, palpitations, SOB, swelling in the feet. Careful with diet to avoid salt, trying to eat more fruits and vegetables, exercises regularly. Afib is well controlled after ablation not on anticoagulation. She is also taking tylenol in the morning and in the night. It does help with aches and pains and sleeping better. In the past month she has noticed some tingling in the tips of the toes and back of the legs, it is happening randomly when she sits or lays down. Few seconds at a time, and then resolves. The swelling in the ankle resolves and it is down. She also has some swelling in the right foot, when she is sitting, the swelling is very mild, and only on that side. There is no pain, tenderness in that area. 07/12/24: she has been watching what she eats , cutting down sweets and exercising more. Her bp is high today, she is on logging bp at home and it is in the range of 140 most times than not. She did not want to change or add bp today until she sees her boat operator in [place]. I think adding some Norvasc would be helpful to her. No problem-specific Assessment AND Plan notes found for this encounter. PAST MEDICAL HISTORY Diagnosis Date Diverticulitis of colon (without mention of hemorrhage)(562.11) HTN (hypertension) Malignant neoplasm of colon, unspecified site 2001 Colon cancer PAST SURGICAL HISTORY Procedure Laterality Date APPENDECTOMY COLECTOMY PARTIAL W/ANASTOMOSIS COLONOSCOPY FLX DX W/COLLJ SPEC WHEN PFRMD 03/25/06 Extensive diverticulosis/ patent anastomoses COLONOSCOPY FLX DX W/COLLJ SPEC WHEN PFRMD 02/02/08 Diverticulosis, no recurrance COLONOSCOPY FLX DX W/COLLJ SPEC WHEN PFRMD 03/19/11 COLONOSCOPY FLX DX W/COLLJ SPEC WHEN PFRMD 16 LIG/TRNSXJ FLP TUBE ABDL/VAG APPR UNI/BI OOPHORECTOMY PARTIAL/TOTAL UNI/BI 02/08/2002 PAST SURGICAL HISTORY OF 2006 BCC removed right leg PAST SURGICAL HISTORY OF 05/2009 BCC removed right scalp FAMILY HISTORY Problem Relation Age of Onset Stroke Maternal Grandfather Hypertension Father Hypertension Brother Hypertension Mother Coronary Artery Disease Maternal Grandfather Diabetes Maternal Grandmother Diabetes Mother Diabetes Brother Social History Tobacco Use Smoking status: Never Smokeless tobacco: Never Substance Use Topics Alcohol use: No Drug use: No Past medical history, appointments, medications, allergies reviewed. Pertinent Lab/Diagnostic Studies are reviewed and discussed today Current Outpatient Medications: amoxicillin-clavulanate potassium (AUGMENTIN) 875-125 mg per tablet lisinopril (ZESTRIL) 30 mg tablet metoprolol tartrate, short acting, (LOPRESSOR) 25 mg tablet fluticasone (FLONASE) 50 mcg/actuation nasal spray cycloSPORINE (RESTASIS) 0.05 % ophthalmic emulsion methylcellulose(CITRUCEL 500 MG TAB) BIOTIN 800 MCG TAB MULTIVITAMIN TAB ASPIRIN 81 MG TAB Review of Systems CONSTITUTIONAL: No fevers, chills night sweats, unintended weight loss CARDIOVASCULAR: No chest pain, dyspnea, palpitations, orthopnea, PND, ankle edema. PULM: No dyspnea, unexplained cough. GI: No dysphagia/odynophagia, problematic reflux, constipation, diarrhea, changes in stool habits, hematochezia, melena. : No new urinary complaints, including dysuria, gross hematuria or pyuria. NEURO: No new balance problems, peripheral weakness/paresthesias or numbness of concern. Physical Exam BP 158/92 (BP Site: Left Arm) Pulse 68 Wt 70.8 kg (156 lb) SpO2 97% BMI 24.43 kg/m? General appearance: Well appearing, alert, in no acute distress, well nourished. Skin: Skin color, texture, turgor normal, no suspicious rashes or lesions Head: Normocephalic, no masses, lesions, tenderness or abnormalities Eyes: Anicteric sclera. Pupils are equally round and reactive to light. Extraocular movements are intact. Lungs: Lungs clear to auscultation. No wheezing, rhonchi, rales Heart: RRR without murmur, gallop, or rubs. Extremities: No deformities, edema, skin discoloration, clubbing or cyanosis. (more content not included)... [facility] 07-12-2024 History of Presen t illness Narrative Erika Yancey is a 72 year old female who presents here today for Above Complaints.. Health Maintenance BP CONTROLLED (<130/80) DTAP,TDAP,TD(2 - Td or Tdap) ADVANCE DIRECTIVE DISCUSSION DEPRESSION ASSESSMENT MAMMOGRAM HPI Erika is a very pleasant 73-year-old woman with a past medical history of colon cancer, SVT and wide-complex tachycardia status post ablation, she also had paroxysmal A-fib which resolved after ablation, prediabetes and essential hypertension. Coloorectal cancer age 51- through a regular colonoscopy it was found. Last colonoscopy was in 2020, no polyps, repeat colonoscopy was to be in 2025. HTN: BP controlled today. Checks BP at home. Lisinopril at 30, 10 and 20 , and metoprolol 12.5 mgs bid, Compliant with medications. Denies any chest pain, palpitations, SOB, swelling in the feet. Careful with diet to avoid salt, trying to eat more fruits and vegetables, exercises regularly. Afib is well controlled after ablation not on anticoagulation. She is also taking tylenol in the morning and in the night. It does help with aches and pains and sleeping better. In the past month she has noticed some tingling in the tips of the toes and back of the legs, it is happening randomly when she sits or lays down. Few seconds at a time, and then resolves. The swelling in the ankle resolves and it is down. She also has some swelling in the right foot, when she is sitting, the swelling is very mild, and only on that side. There is no pain, tenderness in that area. 07/12/24: she has been watching what she eats , cutting down sweets and exercising more. Her bp is high today, she is on logging bp at home and it is in the range of 140 most times than not. She did not want to change or add bp today until she sees her boat operator in [place]. I think adding some Norvasc would be helpful to her. No problem-specific Assessment & Plan notes found for this encounter. PAST MEDICAL HISTORY Diagnosis Date Diverticulitis of colon (without mention of hemorrhage)(562.11) HTN (hypertension) Malignant neoplasm of colon, unspecified site 2001 Colon cancer PAST SURGICAL HISTORY Procedure Laterality Date APPENDECTOMY COLECTOMY PARTIAL W/ANASTOMOSIS COLONOSCOPY FLX DX W/COLLJ SPEC WHEN PFRMD 03/25/06 Extensive diverticulosis/ patent anastomoses COLONOSCOPY FLX DX W/COLLJ SPEC WHEN PFRMD 02/02/08 Diverticulosis, no recurrance COLONOSCOPY FLX DX W/COLLJ SPEC WHEN PFRMD 03/19/11 COLONOSCOPY FLX DX W/COLLJ SPEC WHEN PFRMD 03-19-16 LIG/TRNSXJ FLP TUBE ABDL/VAG APPR UNI/BI OOPHORECTOMY PARTIAL/TOTAL UNI/BI 02/08/2002 PAST SURGICAL HISTORY OF 2006 BCC removed right leg PAST SURGICAL HISTORY OF 05/2009 BCC removed right scalp FAMILY HISTORY Problem Relation Age of Onset Stroke Maternal Grandfather Hypertension Father Hypertension Brother Hypertension Mother Coronary Artery Disease Maternal Grandfather Diabetes Maternal Grandmother Diabetes Mother Diabetes Brother Social History Tobacco Use Smoking status: Never Smokeless tobacco: Never Substance Use Topics Alcohol use: No Drug use: No Past medical history, appointments, medications, allergies reviewed. Pertinent Lab/Diagnostic Studies are reviewed and discussed today Current Outpatient Medications: amoxicillin-clavulanate potassium (AUGMENTIN) 875-125 mg per tablet lisinopril (ZESTRIL) 30 mg tablet metoprolol tartrate, short acting, (LOPRESSOR) 25 mg tablet fluticasone (FLONASE) 50 mcg/actuation nasal spray cycloSPORINE (RESTASIS) 0.05 % ophthalmic emulsion methylcellulose(CITRUCEL 500 MG TAB) BIOTIN 800 MCG TAB MULTIVITAMIN TAB ASPIRIN 81 MG TAB Review of Systems CONSTITUTIONAL: No fevers, chills night sweats, unintended weight loss CARDIOVASCULAR: No chest pain, dyspnea, palpitations, orthopnea, PND, ankle edema. PULM: No dyspnea, unexplained cough. GI: No dysphagia/odynophagia, problematic reflux, constipation, diarrhea, changes in stool habits, hematochezia, melena. : No new urinary complaints, including dysuria, gross hematuria or pyuria. NEURO: No new balance problems, peripheral weakness/paresthesias or numbness of concern. Physical Exam BP 158/92 (BP Site: Left Arm) Pulse 68 Wt 70.8 kg (156 lb) SpO2 97% BMI 24.43 kg/m General appearance: Well appearing, alert, in no acute distress, well nourished. Skin: Skin color, texture, turgor normal, no suspicious rashes or lesions Head: Normocephalic, no masses, lesions, tenderness or abnormalities Eyes: Anicteric sclera. Pupils are equally round and reactive to light. Extraocular movements are intact. Lungs: Lungs clear to auscultation. No wheezing, rhonchi, rales Heart: RRR without murmur, gallop, or rubs. Extremities: No deformities, edema, skin discoloration, clubbing or cyanosis. Good capillary refill. ASSESSMENT/PLAN: 1. Uncontrolled hypertension - ICD9: 401.9, ICD10: I10 (primary diagnosis) Recheck bp, consider norvasc 2. Prediabetes - ICD9: 790.29, ICD10: R73.03 Numbers are lower with her dietary changes Jennifer Garay MD documented in this encounter [facility] 04-10-2024 History of Presen t illness Narrative Images from the original note were not included. Erika Yancey is a 73 year old female here for a Medicare wellness visit. Medicare Health Risk Assessment General Health Very good Exercise: Minutes/Day 120 min Exercise: Days/Week 7 days Alcohol: Daily Use Never Alcohol: Drinks/Day Patient does not drink Alcohol: 6 or more drinks Never Feel off balance No Concerns: Teeth/Dentures No Concerns: Sexual function No Troubled by feelings None of the above Frequency: Eating healthy diet Nearly every day ADLs requiring help None of the above Safety precautions in home/vehicle Yes Smoke, vape, chews tobacco No Difficulty hearing No Difficulty seeing No Current Providers Specialists: I have reviewed specialist-related care of the patient in the medical record. Medical/Family history review Reviewed and updated problem list, medical/surgical/family/social history, medications, and allergies. Opioid use review Opioid Medications (last 90 days) No data to display Anxiety/Depression screening Recommendation: no further intervention at this time Cognitive screening Mini Cog Score: 5 Cognitive screening reviewed and No further action needed (score 3-5). Functional Observation Was the patient's Timed Up & Go test unsteady or ? 12 seconds? No Advance Care Planning Surrogate decision maker and/or advance care plan documented Measurements BP 130/80 Pulse 72 Resp 16 Ht 5' 7 (1.70m) Wt 154 lb (69.9kg) BMI 24.11 kg/(m^2). Vision Screening: Follows with optometry/ophthalmology Assessment/Plan Medicare annual wellness visit, initial (Z00.00) - Counseled on healthy diet and regular exercise - Fall avoidance information provided - Personalized prevention plan provided Reason for Visit Patient presents with: Medicare Wellness Exam Erkia Yancey is a 72 year old female who presents here today for Above Complaints.. Health Maintenance BP CONTROLLED (<130/80) DTAP,TDAP,TD(2 - Td or Tdap) ADVANCE DIRECTIVE DISCUSSION DEPRESSION ASSESSMENT MAMMOGRAM HPI Erika is a very pleasant 73-year-old woman with a past medical history of colon cancer, SVT and wide-complex tachycardia status post ablation, she also had paroxysmal A-fib which resolved after ablation, prediabetes and essential hypertension. Coloorectal cancer age 51- through a regular colonoscopy it was found. Last colonoscopy was in 2020, no polyps, repeat colonoscopy was to be in 2025. HTN: BP controlled today. Checks BP at home. Lisinopril at 30, 10 and 20 , and metoprolol 12.5 mgs bid, Compliant with medications. Denies any chest pain, palpitations, SOB, swelling in the feet. Careful with diet to avoid salt, trying to eat more fruits and vegetables, exercises regularly Afib is well controlled after ablation not on anticoagulation. She is also taking tylenol in the morning and in the night. It does help with aches and pains and sleeping better. In the past month she has noticed some tingling in the tips of the toes and back of the legs, it is happening randomly when she sits or lays down. Few seconds at a time, and then resolves. The swelling in the ankle resolves and it is down. She also has some swelling in the right foot, when she is sitting, the swelling is very mild, and only on that side. There is no pain, tenderness in that area. No problem-specific Assessment & Plan notes found for this encounter. PAST MEDICAL HISTORY Diagnosis Date Diverticulitis of colon (without mention of hemorrhage)(562.11) HTN (hypertension) Malignant neoplasm of colon, unspecified site 2001 Colon cancer PAST SURGICAL HISTORY Procedure Laterality Date APPENDECTOMY COLECTOMY PARTIAL W/ANASTOMOSIS COLONOSCOPY FLX DX W/COLLJ SPEC WHEN PFRMD 03/25/06 Extensive diverticulosis/ patent anastomoses COLONOSCOPY FLX DX W/COLLJ SPEC WHEN PFRMD 02/02/08 Diverticulosis, no recurrance COLONOSCOPY FLX DX W/COLLJ SPEC WHEN PFRMD 03/19/11 COLONOSCOPY FLX DX W/COLLJ SPEC WHEN PFRMD 03-19-16 LIG/TRNSXJ FLP TUBE ABDL/VAG APPR UNI/BI OOPHORECTOMY PARTIAL/TOTAL UNI/BI 02/08/2002 PAST SURGICAL HISTORY OF 2006 BCC removed right leg PAST SURGICAL HISTORY OF 05/2009 BCC removed right scalp FAMILY HISTORY Problem Relation Age of Onset Stroke Maternal Grandfather Hypertension Father Hypertension Brother Hypertension Mother Coronary Artery Disease Maternal Grandfather Diabetes Maternal Grandmother Diabetes Mother Diabetes Brother Social History Tobacco Use Smoking status: Never Smokeless tobacco: Never Substance Use Topics Alcohol use: No Drug use: No Past medical history, appointments, medications, allergies reviewed. Pertinent Lab/Diagnostic Studies are reviewed and discussed today Current Outpatient Medications: lisinopril (ZESTRIL) 30 mg tablet metoprolol tartrate, short acting, (LOPRESSOR) 25 mg tablet cycloSPORINE (RESTASIS) 0.05 % ophthalmic emulsion methylcellulose(CITRUCEL 500 MG TAB) BIOTIN 800 MCG TAB MULTIVITAMIN TAB ASPIRIN 81 MG TAB fluticasone (FLONASE) 50 mcg/actuation nasal spray Review of Systems CONSTITUTIONAL: No fevers, chills night sweats, unintended weight loss CARDIOVASCULAR: No chest pain, dyspnea, palpitations, orthopnea, PND, ankle edema. PULM: No dyspnea, unexplained cough. GI: No dysphagia/odynophagia, problematic reflux, constipation, diarrhea, changes in stool habits, hematochezia, melena. : No new urinary complaints, including dysuria, gross hematuria or pyuria. NEURO: No new balance problems, peripheral weakness/paresthesias or numbness of concern. Physical Exam BP 130/80 Pulse 72 Resp 16 Ht 170.2 cm (5' 7) Wt 69.9 kg (154 lb) BMI 24.12 kg/m General appearance: Well appearing, alert, in no acute distress, well nourished. Skin: Skin color, texture, turgor normal, no suspicious rashes or lesions Head: Normocephalic, no masses, lesions, tenderness or abnormalities Eyes: Anicteric sclera. Pupils are equally round and reactive to light. Extraocular movements are intact. Lungs: Lungs clear to auscultation. No wheezing, rhonchi, rales Heart: RRR without murmur, gallop, or rubs. Extremities: No deformities, edema, skin discoloration, clubbing or cyanosis. Good capillary refill. ASSESSMENT/PLAN: 1. Medicare annual wellness visit, subsequent - ICD9: V70.0, ICD10: Z00.00 (primary diagnosis) - Counseled on healthy diet and regular exercise - Calcium intake with supplements or by diet of 1000 mg/day for under 50, 5354-4224 mg/day for 50+ 2. Essential hypertension - ICD9: 401.9, ICD10: I10 - good control - Recommended regular aerobic exercise. - Recommend home blood pressure monitoring, to bring results in on next visit - Goal of BP <130/80 3. Breast cancer screening by mammogram - ICD9: V76.12, ICD10: Z12.31 - Encouraged monthly BSE - Follow up for annual exam in one year. - VENTURA SCREENING W KUMAR 4. Paroxysmal A-fib (HCC) - ICD9: 427.31, ICD10: I48.0 After her ablation she does not need anit coagulation She is doing much better 05/05/2021 07/14/2022 07/21/2022 02/01/2023 Depression Screening PHQ-2 Score 0 0 0 0 PHQ-9 Score 0 Depression screening tool completed and reviewed. Based on score and interview, patient is not at risk for depression. Screening tool discussed with patient, and I recommended no further intervention at this time. Jennifer Garay MD Reassured her about her numbness and tingling. We discussed her A1c of 6.4 and discussed very close monitoring. That she should get on metformin if her A1c closer to 6.5. We would also like very close monitoring of her A1c. Almost every 3 months routinely. documented in this encounter [facility] 03-20-2024 Note Formatting of this n ote might be different from the original. March 20, 2024 PID: [id number] Erika Yancey [address] [place] [address] Dear Ms. Yancey, We are pleased to inform you that the results of your recent breast imaging exam on 03/20/2024 are normal. Your mammogram demonstrates that you have dense breast tissue, which could hide abnormalities. Dense breast tissue, in and of itself, is a relatively common condition. Therefore, this information is not provided to cause undue concern; rather, it is to raise your awareness and promote discussion with your health care provider regarding the presence of dense breast tissue in addition to other risk factors. Early detection of cancer is very important. We also understand recommendations regarding breast cancer screening are controversial. Please discuss with your primary care provider which strategy is best for you and whether a mammogram is right for you. Your imaging studies and report will be kept on file at [facility] as part of your permanent medical record and are available for your continuing care. Thank you for allowing us to help in meeting your health care needs. Sincerely, Dr. Smith Interpreting Radiologist [facility] (Normal over 40) [facility] 03-20-2024 Miscellaneous Notes March 20, 2024 PID: [id number] Erika Yancey [address] [place] [address] Dear Ms. Yancey, We are pleased to inform you that the results of your recent breast imaging exam on 03/20/2024 are normal. Your mammogram demonstrates that you have dense breast tissue, which could hide abnormalities. Dense breast tissue, in and of itself, is a relatively common condition. Therefore, this information is not provided to cause undue concern; rather, it is to raise your awareness and promote discussion with your health care provider regarding the presence of dense breast tissue in addition to other risk factors. Early detection of cancer is very important. We also understand recommendations regarding breast cancer screening are controversial. Please discuss with your primary care provider which strategy is best for you and whether a mammogram is right for you. Your imaging studies and report will be kept on file at [facility] as part of your permanent medical record and are available for your continuing care. Thank you for allowing us to help in meeting your health care needs. Sincerely, Dr. Smith Interpreting Radiologist [facility] (Normal over 40) documented in this encounter [facility] 03-20-2024 History of Presen t illness Narrative Radiology Service Progress Note PATIENT NAME: Erika Yancey DATE OF SERVICE: March 20, 2024 TIME: 9:48 AM PATIENT IDENTITY VERIFICATION COMPLETED USING TWO (2) IDENTIFIERS: Name and Date of confirmed by patient verbally. FALL SCREENING: Has the patient had 2 falls in the last year or 1 fall with injury or currently using an Ambulatory Assistive Device (Walker, Cane, Wheelchair, Crutches, etc.)? No PATIENT GENDER DATA: Female. status: : No status: NO. 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: No RADIOLOGY DEPARTMENT: Mammography PERIPHERAL IV DATA: Not applicable SIGNED BY: Shirley Paz March 20, 2024 9:48 AM documented in this encounter [facility] 12-23-2023 History of Presen t illness Narrative POPULATION HEALTH NAVIGATION OUTREACH Action/ Returning patients call as patient left a detail message on my voicemail in regards to initial outreach from 12/14/2023 [facility] Discuss/Due for: Medicare Wellness, Mammogram Outcome: 1st attempt - Spoke to patient Scheduled Medicare Wellness/Mammogram - 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 Reason for Outreach Care Gap/HCC or Scheduling Wellness Visits Care Gaps due: Medicare Annual Wellness Visit Breast Cancer Screening Patient Contacted: Spoke to patient/parent/or legal guardian Patient identified by name and : Yes Care Gap/HCC/Scheduling Wellness actions taken: Patient scheduled/pended labs: Medicare Annual Wellness Visit Breast Cancer Screening 03/20/2024 in RADIO MAMMO [facility] with SCREEN MAMMO [facility] - Mammogram Tomogram Screen 04/10/2024 in INTM [facility] with JENNIFER GARAY - MEDICARE WELLNESS Z00.00, HCC GAP CLOSURE HCC related Navigation Signature: Paulette Rodriguez MA December 23, 2023 11:14 AM documented in this encounter [facility] 03-18-2023 Miscellaneous Notes March 21, 2023 PID: [id number] Erika Yancey [facility] [place] [address] Dear Ms. Yancey, We are pleased to inform you that the results of your recent breast imaging exam on 03/17/2023 are normal. Your mammogram demonstrates that you have dense breast tissue, which could hide abnormalities. Dense breast tissue, in and of itself, is a relatively common condition. Therefore, this information is not provided to cause undue concern; rather, it is to raise your awareness and promote discussion with your health care provider regarding the presence of dense breast tissue in addition to other risk factors. Early detection of cancer is very important. We also understand recommendations regarding breast cancer screening are controversial. Please discuss with your primary care provider which strategy is best for you and whether a mammogram is right for you. Your imaging studies and report will be kept on file at [facility] as part of your permanent medical record and are available for your continuing care. Thank you for allowing us to help in meeting your health care needs. Sincerely, Dr. Allan Interpreting Radiologist [facility] (Normal over 40) documented in this encounter [facility] 03-17-2023 History of Presen t illness Narrative Radiology Service Progress Note PATIENT NAME: Erika Yancey DATE OF SERVICE: March 17, 2023 TIME: 9:08 AM PATIENT IDENTITY VERIFICATION COMPLETED USING TWO (2) IDENTIFIERS: Name and Date of confirmed by patient verbally. FALL SCREENING: Has the patient had 2 falls in the last year or 1 fall with injury or currently using an Ambulatory Assistive Device (Walker, Cane, Wheelchair, Crutches, etc.)? No PATIENT GENDER DATA: Female. status: : No status: NO. PATIENT RELEVANT IMPLANT DATA REVIEWED: Not Applicable RADIOLOGY DEPARTMENT: Mammography PERIPHERAL IV DATA: Not applicable SIGNED BY: RT Annalisa(R) March 17, 2023 9:08 AM documented in this encounter [facility] 02-01-2023 History of Presen t illness Narrative Medicare Yearly Visit Medical B eligibilty date age 65 Date of last exam none in the past year PAST MEDICAL HISTORY Diagnosis Date Diverticulitis of colon (without mention of hemorrhage)(562.11) HTN (hypertension) Malignant neoplasm of colon, unspecified site 2001 Colon cancer PAST SURGICAL HISTORY Procedure Laterality Date APPENDECTOMY COLECTOMY PARTIAL W/ANASTOMOSIS COLONOSCOPY FLX DX W/COLLJ SPEC WHEN PFRMD 03/25/06 Extensive diverticulosis/ patent anastomoses COLONOSCOPY FLX DX W/COLLJ SPEC WHEN PFRMD 02/02/08 Diverticulosis, no recurrance COLONOSCOPY FLX DX W/COLLJ SPEC WHEN PFRMD 03/19/11 COLONOSCOPY FLX DX W/COLLJ SPEC WHEN PFRMD 03-19-16 LIG/TRNSXJ FLP TUBE ABDL/VAG APPR UNI/BI OOPHORECTOMY PARTIAL/TOTAL UNI/BI 02/08/2002 PAST SURGICAL HISTORY OF 2006 BCC removed right leg PAST SURGICAL HISTORY OF 05/2009 BCC removed right scalp ALLERGIES: Grass Pollen, Pollen, Ragweed, and Trees Medications reviewed: Yes FAMILY HISTORY Problem Relation Age of Onset Stroke Maternal Grandfather Hypertension Father Hypertension Brother Hypertension Mother Coronary Artery Disease Maternal Grandfather Diabetes Maternal Grandmother Diabetes Mother Diabetes Brother SOCIAL HISTORY: Social History Tobacco Use Smoking status: Never Smokeless tobacco: Never Substance Use Topics Alcohol use: No Drug use: No Erika does regular aerobic exercise. She watches her diet for sodium, low fat and low cholesterol most of the time. She has lost 6 pounds of weight since she last saw me. Her has pneumonia for a year. List of current specialists seen: End of Live Planning discussed including patients advanced directive wishes: Yes I am willing to follow Erika's advanced directives. PHQ-2 / Depression screen She in the past two weeks denies having felt down, depressed, hopeless, or with little interest or pleasure in doing things. Functional Ability/Safety Screen 1. Was the patient's timed Up and Go test unsteady or longer than 30 seconds? No 2. Does the patient need help with the phone, transportation, shopping,preparing meals, housework, laundry, medications or managing money? No 3. Does your home have rugs in the hallway, lack of grab bars in the bathroom, lack of handrails on the stairs or have poor lighting? No Hearing Evaluation: within normal limits and normal PHYSICAL EXAM BP 128/70 (BP Site: Left Arm, BP Position: Sitting, BP Cuff Size: Large Adult) Pulse 73 Temp 36.6 C (97.9 F) Resp 12 Ht 170.2 cm (5' 7) Wt 68.5 kg (151 lb) SpO2 98% BMI 23.65 kg/m Alert and oriented X 3: YES Body mass index is 23.65 kg/m . ASSESSMENT/PLAN: 72 year old female The following prevention plan was discussed during the office visit and provided to the patient: - Lipid panel - Glaucoma screening Jennifer Garay MD Reason for Visit Patient presents with: Medicare Wellness Exam Erika Yancey is a 72 year old female who presents here today for Above Complaints.. Health Maintenance BP CONTROLLED (<130/80) DTAP,TDAP,TD(2 - Td or Tdap) ADVANCE DIRECTIVE DISCUSSION DEPRESSION ASSESSMENT MAMMOGRAM HPI Lost around 6 pounds of weight by watching her sweets a little more,. Eating lesser portions of ice cream. Started pickle ball for exercises. HTN: BP controlled today. Checks BP at home. Compliant with medications. Denies any chest pain, palpitations, SOB, swelling in the feet. Careful with diet to avoid salt, trying to eat more fruits and vegetables, exercises regularly Afib is well controlled after ablation not on anticoagulation No problem-specific Assessment & Plan notes found for this encounter. PAST MEDICAL HISTORY Diagnosis Date Diverticulitis of colon (without mention of hemorrhage)(562.11) HTN (hypertension) Malignant neoplasm of colon, unspecified site 2001 Colon cancer PAST SURGICAL HISTORY Procedure Laterality Date APPENDECTOMY COLECTOMY PARTIAL W/ANASTOMOSIS COLONOSCOPY FLX DX W/COLLJ SPEC WHEN PFRMD 03/25/06 Extensive diverticulosis/ patent anastomoses COLONOSCOPY FLX DX W/COLLJ SPEC WHEN PFRMD 02/02/08 Diverticulosis, no recurrance COLONOSCOPY FLX DX W/COLLJ SPEC WHEN PFRMD 03/19/11 COLONOSCOPY FLX DX W/COLLJ SPEC WHEN PFRMD 03-19-16 LIG/TRNSXJ FLP TUBE ABDL/VAG APPR UNI/BI OOPHORECTOMY PARTIAL/TOTAL UNI/BI 02/08/2002 PAST SURGICAL HISTORY OF 2006 BCC removed right leg PAST SURGICAL HISTORY OF 05/2009 BCC removed right scalp FAMILY HISTORY Problem Relation Age of Onset Stroke Maternal Grandfather Hypertension Father Hypertension Brother Hypertension Mother Coronary Artery Disease Maternal Grandfather Diabetes Maternal Grandmother Diabetes Mother Diabetes Brother Social History Tobacco Use Smoking status: Never Smokeless tobacco: Never Substance Use Topics Alcohol use: No Drug use: No Past medical history, appointments, medications, allergies reviewed. Pertinent Lab/Diagnostic Studies are reviewed and discussed today Current Outpatient Medications: lisinopril (ZESTRIL, PRINIVIL) 10 mg tablet metoprolol tartrate, short acting, (LOPRESSOR) 25 mg tablet COMPOUNDED PRESCRIPTION fluticasone (FLONASE) 50 mcg/actuation nasal spray cycloSPORINE (RESTASIS) 0.05 % ophthalmic emulsion methylcellulose(CITRUCEL 500 MG TAB) BIOTIN 800 MCG TAB ZYRTEC 10 MG TAB MULTIVITAMIN TAB ASPIRIN 81 MG TAB Review of Systems CONSTITUTIONAL: No fevers, chills night sweats, unintended weight loss CARDIOVASCULAR: No chest pain, dyspnea, palpitations, orthopnea, PND, ankle edema. PULM: No dyspnea, unexplained cough. GI: No dysphagia/odynophagia, problematic reflux, constipation, diarrhea, changes in stool habits, hematochezia, melena. : No new urinary complaints, including dysuria, gross hematuria or pyuria. NEURO: No new balance problems, peripheral weakness/paresthesias or numbness of concern. Physical Exam BP 128/70 (BP Site: Left Arm, BP Position: Sitting, BP Cuff Size: Large Adult) Pulse 73 Temp 36.6 C (97.9 F) Resp 12 Ht 170.2 cm (5' 7) Wt 68.5 kg (151 lb) SpO2 98% BMI 23.65 kg/m General appearance: Well appearing, alert, in no acute distress, well nourished. Skin: Skin color, texture, turgor normal, no suspicious rashes or lesions Head: Normocephalic, no masses, lesions, tenderness or abnormalities Eyes: Anicteric sclera. Pupils are equally round and reactive to light. Extraocular movements are intact. Lungs: Lungs clear to auscultation. No wheezing, rhonchi, rales Heart: RRR without murmur, gallop, or rubs. Extremities: No deformities, edema, skin discoloration, clubbing or cyanosis. Good capillary refill. ASSESSMENT/PLAN: 1. Medicare annual wellness visit, subsequent - ICD9: V70.0, ICD10: Z00.00 (primary diagnosis) - Counseled on healthy diet and regular exercise - Calcium intake with supplements or by diet of 1000 mg/day for under 50, 9844-0522 mg/day for 50+ 2. Essential hypertension - ICD9: 401.9, ICD10: I10 - good control - Recommended regular aerobic exercise. - Recommend home blood pressure monitoring, to bring results in on next visit - Goal of BP <130/80 3. Breast cancer screening by mammogram - ICD9: V76.12, ICD10: Z12.31 - Encouraged monthly BSE - Follow up for annual exam in one year. - VENTURA SCREENING W KUMAR 4. Paroxysmal A-fib (HCC) - ICD9: 427.31, ICD10: I48.0 After her ablation she does not need anit coagulation She is doing much better Depression Screening 05/05/2021 07/14/2022 07/21/2022 02/01/2023 PHQ-2 Score 0 0 0 0 PHQ-9 Score - 0 - - FABIENNE-2 Total Score - - - - Depression screening tool completed and reviewed. Based on score and interview, patient is not at risk for depression. Screening tool discussed with patient, and I recommended no further intervention at this time. Jennifer Garay MD documented in this encounter [facility] 02-01-2023 Nurse Note Eye doctor [facility] [place] [facility]- seen last in April and schedule for this April documented in this encounter [facility] 07-21-2022 History of Presen t illness Narrative Reason for Visit Patient presents with: F/U 6 months Erika Yancey is a 71 year old female who presents here today for Above Complaints. Health Maintenance BP CONTROLLED (<130/80) DTAP,TDAP,TD(2 - Td or Tdap) ADVANCE DIRECTIVE DISCUSSION DEPRESSION ASSESSMENT HPI Erika is 70-year-old very pleasant woman with a past medical history of colon cancer stage stage II in 2001, hypertension, SVT and A. fib, knee pain, diverticulitis. She has lost 3 pounds of weight recently, she has been exercising more and eating less. She is more active than she was in the past. Hypertension: we tried to decrease her use of lisinopril from 30 to now 20, not still happy with her blood pressure as it is more on the 130 but prior to that she was in the range of 110, and was dizzy so we tried our best to cut it down. SVT and A. fib: She had an ablation following which she has been doing very well. She is following up with Dr. muller. Not on any medications right now. Diverticulitis: She notes that in the past few years she has not had many flares of diverticulitis. Prior to that she is to have frequent flares. Colon cancer: At the age of 51 she had colon cancer that had become the size of golf ball and had gone full-thickness into her colon wall and was spreading to the peritoneum but she did not have any neural meta stasis. Except local in the peritoneum. She got 18 treatments of chemotherapy. She is now getting her colonoscopies only every 5 years because she has not had a polyp since her diagnosis of colon cancer. Never before and never after. She did have multiple diverticuli but is overall doing fine. Last colonoscopy was in 2020. Prediabetes: Despite walking for 5 miles a day and eating healthy most of the time, she does eat a cookie almost every evening and that is usually with oatmeal and cranberry or raises. If she has a cookie, she is eating lesser than before , hba1c is little lesser than last time. Strong family history of diabetes. Despite her good diet and exercise her A1c has been coming up gradually over the past 2 years. Last year she was 5.9 and this year she is 6.2. She does note that if something she might have done need Metformin and states that most of her family members became diabetic only in the older age is in she is okay for it. Arthritis: She is to take meloxicam but before visits ago her GFR was 59 and I told her about NSAIDs causing decrease in GFR since then she has been only using Tylenol as needed and her GFR is back to being above 60. Today I gave her permission to take the NSAIDs occasionally. No problem-specific Assessment & Plan notes found for this encounter. PAST MEDICAL HISTORY Diagnosis Date Diverticulitis of colon (without mention of hemorrhage)(562.11) HTN (hypertension) Malignant neoplasm of colon, unspecified site 2001 Colon cancer PAST SURGICAL HISTORY Procedure Laterality Date APPENDECTOMY COLECTOMY PARTIAL W/ANASTOMOSIS COLONOSCOPY FLX DX W/COLLJ SPEC WHEN PFRMD 03/25/06 Extensive diverticulosis/ patent anastomoses COLONOSCOPY FLX DX W/COLLJ SPEC WHEN PFRMD 02/02/08 Diverticulosis, no recurrance COLONOSCOPY FLX DX W/COLLJ SPEC WHEN PFRMD 03/19/11 COLONOSCOPY FLX DX W/COLLJ SPEC WHEN PFRMD 03-19-16 LIG/TRNSXJ FLP TUBE ABDL/VAG APPR UNI/BI OOPHORECTOMY PARTIAL/TOTAL UNI/BI 02/08/2002 PAST SURGICAL HISTORY OF 2006 BCC removed right leg PAST SURGICAL HISTORY OF 05/2009 BCC removed right scalp FAMILY HISTORY Problem Relation Age of Onset Stroke Maternal Grandfather Hypertension Father Hypertension Brother Hypertension Mother Coronary Artery Disease Maternal Grandfather Diabetes Maternal Grandmother Diabetes Mother Diabetes Brother Social History Tobacco Use Smoking status: Never Smokeless tobacco: Never Substance Use Topics Alcohol use: No Drug use: No Past medical history, appointments, medications, allergies reviewed. Pertinent Lab/Diagnostic Studies are reviewed and discussed today Current Outpatient Medications: lisinopril (ZESTRIL, PRINIVIL) 10 mg tablet metoprolol tartrate, short acting, (LOPRESSOR) 25 mg tablet fluticasone (FLONASE) 50 mcg/actuation nasal spray COMPOUNDED PRESCRIPTION cycloSPORINE (RESTASIS) 0.05 % ophthalmic emulsion methylcellulose(CITRUCEL 500 MG TAB) BIOTIN 800 MCG TAB ZYRTEC 10 MG TAB MULTIVITAMIN TAB ASPIRIN 81 MG TAB Review of Systems CONSTITUTIONAL: No fevers, chills night sweats, unintended weight loss CARDIOVASCULAR: No chest pain, dyspnea, palpitations, orthopnea, PND, ankle edema. PULM: No dyspnea, unexplained cough. GI: No dysphagia/odynophagia, problematic reflux, constipation, diarrhea, changes in stool habits, hematochezia, melena. : No new urinary complaints, including dysuria, gross hematuria or pyuria. NEURO: No new balance problems, peripheral weakness/paresthesias or numbness of concern. Physical Exam BP 130/72 (BP Site: Left Arm, BP Position: Sitting, BP Cuff Size: Large Adult) Pulse 72 Temp 37.3 C (99.1 F) Resp 12 Ht 170.2 cm (5' 7) Wt 69.9 kg (154 lb) SpO2 99% BMI 24.12 kg/m General appearance: Well appearing, alert, in no acute distress, well nourished. Skin: Skin color, texture, turgor normal, no suspicious rashes or lesions Head: Normocephalic, no masses, lesions, tenderness or abnormalities Eyes: Anicteric sclera. Pupils are equally round and reactive to light. Extraocular movements are intact. Lungs: Lungs clear to auscultation. No wheezing, rhonchi, rales Heart: RRR without murmur, gallop, or rubs. Extremities: No deformities, edema, skin discoloration, clubbing or cyanosis. Good capillary refill. ASSESSMENT/PLAN: 1. SVT (supraventricular tachycardia) (HCC) - ICD9: 427.89, ICD10: I47.1 (primary diagnosis) The patient seemed to be in afib today but rate controlled. 2. Essential hypertension - ICD9: 401.9, ICD10: I10 - good control - Recommended regular aerobic exercise. - Recommend home blood pressure monitoring, to bring results in on next visit - Goal of BP <130/80 - COMP METABOLIC PANEL - LIPID PANEL BASIC 3. Left ventricular hypertrophy - ICD9: 429.3, ICD10: I51.7 4. Left knee pain, unspecified chronicity - ICD9: 719.46, ICD10: M25.562 She does not have complaints today 5. Hyperlipidemia, unspecified hyperlipidemia type - ICD9: 272.4, ICD10: E78.5 - good control - Continue current medication. - LIPID PANEL BASIC 6. Prediabetes - ICD9: 790.29, ICD10: R73.03 - HGB A1C Jennifer Garay MD documented in this encounter [facility] 03-10-2022 Miscellaneous Notes March 10, 2022 PID: [id number] Erika Yancey [address] [place] [address] Dear Frank Naye, We are pleased to inform you that the results of your recent breast imaging exam on 03/10/2022 are normal. Your mammogram demonstrates that you have dense breast tissue, which could hide abnormalities. Dense breast tissue, in and of itself, is a relatively common condition. Therefore, this information is not provided to cause undue concern; rather, it is to raise your awareness and promote discussion with your health care provider regarding the presence of dense breast tissue in addition to other risk factors. Early detection of cancer is very important. We also understand recommendations regarding breast cancer screening are controversial. Please discuss with your primary care provider which strategy is best for you and whether a mammogram is right for you. Your imaging studies and report will be kept on file at [facility] as part of your permanent medical record and are available for your continuing care. Thank you for allowing us to help in meeting your health care needs. Sincerely, Dr. Smith Interpreting Radiologist [facility] (Normal over 40) documented in this encounter [facility] 03-08-2022 Miscellaneous Notes Please release pending screening mammogram order. Appt is today. Thank you. documented in this encounter [facility] Evaluation note Diagnosis Breast cancer screening by mammogram- Primary [facility] Diagnosis Medication management Encounter for long-term (current) use of other medications [facility] Diagnosis SVT (supraventricular tachycardia) (HCC)- Primary Other specified cardiac dysrhythmias Essential hypertension Unspecified essential hypertension Left ventricular hypertrophy Cardiomegaly Left knee pain, unspecified chronicity Hyperlipidemia, unspecified hyperlipidemia type Prediabetes Other abnormal glucose [facility] Diagnosis Medicare annual wellness visit, subsequent- Primary Routine general medical examination at a health care facility Essential hypertension Unspecified essential hypertension Breast cancer screening by mammogram Paroxysmal A-fib (HCC) Atrial fibrillation Malignant neoplasm of colon, unspecified part of colon (HCC) [facility] Diagnosis Encounter for screening mammogram for malignant neoplasm of breast Other screening mammogram [facility] Diagnosis Essential hypertension Unspecified essential hypertension Medication management Encounter for long-term (current) use of other medications [facility] Diagnosis Medicare annual wellness visit, subsequent- Primary Routine general medical examination at a [facility] care facility Malignant neoplasm of colon, unspecified part of colon (HCC) Paroxysmal A-fib (HCC) Atrial fibrillation Prediabetes Other abnormal glucose [facility] Diagnosis Prediabetes- Primary Other abnormal glucose Chronic seasonal allergic rhinitis due to pollen Malignant neoplasm of colon, unspecified part of colon (HCC) Essential hypertension Unspecified essential hypertension Left ventricular hypertrophy Cardiomegaly Uncontrolled hypertension- Primary Unspecified essential hypertension Prediabetes Other abnormal glucose [facility] Diagnosis Encounter for screening mammogram for malignant neoplasm of breast- Primary Other screening mammogram [facility] Diagnosis Prediabetes- Primary Other abnormal glucose Chronic seasonal allergic rhinitis due to pollen Malignant neoplasm of colon, unspecified part of colon (HCC) Essential hypertension Unspecified essential hypertension Left ventricular hypertrophy Cardiomegaly Prediabetes- Primary Other abnormal glucose [facility] Diagnosis Prediabetes- Primary Other abnormal glucose Chronic seasonal allergic rhinitis due to pollen Malignant neoplasm of colon, unspecified part of colon (HCC) Essential hypertension Unspecified essential hypertension Left ventricular hypertrophy Cardiomegaly Encounter for screening mammogram for breast cancer [facility] Diagnosis Prediabetes- Primary Other abnormal glucose Chronic seasonal allergic rhinitis due to pollen Malignant neoplasm of colon, unspecified part of colon (HCC) Essential hypertension Unspecified essential hypertension Left ventricular hypertrophy Cardiomegaly Medication management Encounter for long-term (current) use of other medications [facility] Diagnosis Prediabetes- Primary Other abnormal glucose Chronic seasonal allergic rhinitis due to pollen Malignant neoplasm of colon, unspecified part of colon (HCC) Essential hypertension Unspecified essential hypertension Left ventricular hypertrophy Cardiomegaly Essential hypertension- Primary Unspecified essential hypertension Medicare annual wellness visit, subsequent Routine general medical examination at a health care facility Paroxysmal A-fib (HCC) Atrial fibrillation Prediabetes Other abnormal glucose Mixed hyperlipidemia Constipation, unspecified constipation type documented in this encounter [facility] for referral (narrative)* Diagnostic Procedure Only (Routine) - Closed Specialty Diagnoses / Procedures Referred By Phoebe kelley Referred To Contact [facility] Diagnoses Breast cancer screening by mammogram Procedures VENTURA SCREENING SCREENING MAMMOGRAPHY BI 2-VIEW BREAST INC Jennifer Zamudio MD [address] [place] [address] [facility] [address] [place] [address] Referral ID Status Reason Start Date Expiration Date V isits Requested Visits Authorized [id number] Closed Auto-Generate d Referral 03/10/2022 04/09/2023 1 1 [facility] for referral (narrative)* Diagnostic Procedure Only (Routine) - Authorized Specialty Diagnoses / Procedures Referred By Phoebe kelley Referred To Contact [facility] Diagnoses Breast cancer screening by mammogram Procedures VENTURA SCREENING W KUMAR SCREENING DIGITAL BREAST TOMOSYNTHESIS BI SCREENING MAMMOGRAPHY BI 2-VIEW BREAST INC Jennifer Zamudio MD [address] [place] [address] [facility] [address] [place] [address] Referral ID Status Reason Start Date Expiration Date Visits Requested Visits Authorized [id number] Authorized Auto-Generat ed Referral 02/01/2023 03/02/2024 1 1 [facility] for referral (narrative)* Diagnostic Procedure Only (Routine) - Closed Specialty Diagnoses / Procedures Referred By Phoebe kelley Referred To Contact [facility] Diagnoses Breast cancer screening by mammogram Procedures VENTURA SCREENING W KUMAR SCREENING DIGITAL BREAST TOMOSYNTHESIS BI SCREENING MAMMOGRAPHY BI 2-VIEW BREAST INC Jennifer Zamudio MD [address] [place] [address] [facility] [address] [place] [address] Referral ID Status Reason Start Date Expiration Date V isits Requested Visits Authorized [id number] Closed Auto-Generate d Referral 02/01/2023 03/02/2024 1 1 [facility] for referral (narrative)* Diagnostic Procedure Only (Routine) - Closed Specialty Diagnoses / Procedures Referred By Contac t Referred To Contact [facility] Diagnoses Encounter for screening mammogram for malignant neoplasm of breast Procedures VENTURA SCREENING W KUMAR SCREENING DIGITAL BREAST TOMOSYNTHESIS BI SCREENING MAMMOGRAPHY BI 2-VIEW BREAST INC Jennifer Zamudio MD [address] [place] [address] [facility] [address] [place] [address] Referral ID Status Reason Start Date Expiration Date V isits Requested Visits Authorized [id number] Closed Auto-Generate d Referral 12/23/2023 01/21/2025 1 1 [facility] for referral (narrative)* Diagnostic Procedure Only (Routine) - Authorized Specialty Diagnoses / Procedures Referred By Phoebe kelley Referred To Contact [facility] Diagnoses Encounter for screening mammogram for malignant neoplasm of breast Procedures VENTURA SCREENING W KUMAR SCREENING DIGITAL BREAST TOMOSYNTHESIS BI SCREENING MAMMOGRAPHY BI 2-VIEW BREAST INC Jennifer Zamudio MD [address] [place] [address] [facility] [address] [place] [address] Referral ID Status Reason Start Date Expiration Date Visits Requested Visits Authorized [id number] Authorized Auto-Generat ed Referral 12/23/2023 01/21/2025 1 1 T [facility] for visit Narrative* Diagnostic Procedure Only (Routine) - Closed Specialty Diagnoses / Procedures Referred By Phoebe t Referred To Contact [facility] Diagnoses Breast cancer screening by mammogram Procedures VENTURA SCREENING W KUMAR SCREENING DIGITAL BREAST TOMOSYNTHESIS BI SCREENING MAMMOGRAPHY BI 2-VIEW BREAST INC Jennifer Zamudio MD [address] [place] [address] [facility] [address] [place] [address] Referral ID Status Reason Start Date Expiration Date V isits Requested Visits Authorized [id number] Closed Auto-Generate d Referral 02/01/2023 03/02/2024 1 1 [facility] for visit Narrative* Diagnostic Procedure Only (Routine) - Closed Specialty Diagnoses / Procedures Referred By Phoebe kelley Referred To Contact [facility] Diagnoses Encounter for screening mammogram for malignant neoplasm of breast Procedures VENTURA SCREENING W KUMAR SCREENING DIGITAL BREAST TOMOSYNTHESIS BI SCREENING MAMMOGRAPHY BI 2-VIEW BREAST INC Jennifer Zamudio MD [address] [place] [address] [facility] [address] [place] [address] Referral ID Status Reason Start Date Expiration Date V isits Requested Visits Authorized [id number] Closed Auto-Generate d Referral 12/23/2023 01/21/2025 1 1 [facility] for visit Narrative* Diagnostic Procedure Only (Routine) - Closed Specialty Diagnoses / Procedures Referred By Phoebe kelley Referred To Contact [facility] Diagnoses Encounter for screening mammogram for breast cancer Procedures VENTURA SCREENING W KUMAR SCREENING DIGITAL BREAST TOMOSYNTHESIS BI SCREENING MAMMOGRAPHY BI 2-VIEW BREAST INC Jennifer Zamudio MD [address] [place] [address] Phone: tel: fax: [facility] [address] [place] [address] Referral ID Status Reason Start Date Expiration Date V isits Requested Visits Authorized [id number] Closed Auto-Generate d Referral 03/04/2025 04/03/2026 1 1 [facility] Summary Purpose Family History No Family History Records FoundNo Family History Records FoundNo Family History Records Found Advance Directives No Advanced Directives Records FoundDocuments on File Type Date 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 Advance Directive(s) 03/19/2016 7:27 AM Advance Directive(s) 03/02/2016 12:43 PM Advance Directive(s) 04/17/2012 12:07 PM Advance Directive(s) 11/03/2006 12:00 AM Documents on File Type Date 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 Advance 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(s) 03/19/2016 7:27 AM Advance Directive(s) 03/02/2016 12:43 PM Advance Directive(s) 04/17/2012 12:07 PM Advance Directive(s) 11/03/2006 12:00 AM Documents on File Type Date 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 Advance Directive(s) 04/17/2012 12:07 PM Advance Directive(s) 11/03/2006 Documents on File Type Date 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 Advance Directive(s) 04/17/2012 12:07 PM Advance Directive(s) 11/03/2006 Documents on File Type Date 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 Advance Directive(s) 04/17/2012 12:07 PM Documents on File Type Date 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 Advance Directive(s) 04/17/2012 12:07 PM Additional Source Comments INFORMATION SOURCE (unrecogn ized section and content) DATE CREATED AUTHOR 03/09/2018 [facility] DATE CREATED AUTHOR AUTHOR'S ORGANIZ ATION 03/23/2024 [facility] DATE CREATED AUTHOR AUTHOR'S ORGANIZ ATION 04/16/2025 [facility] Source Comments (unrecognize d section and content) In the event this informatio n is protected by the Federal Confidentiality of Alcohol and Drug Abuse Patient Records regulations: The Federal rules restrict any use of the information to criminally investigate or prosecute any alcohol or drug abuse patient.[facility] the event this information is protected by the Federal Confidentiality of Alcohol and Drug Abuse Patient Records regulations: The Federal rules restrict any use of the information to criminally investigate or prosecute any alcohol or drug abuse patient.[facility] the event this information is protected by the Federal Confidentiality of Alcohol and Drug Abuse Patient Records regulations: The Federal rules restrict any use of the information to criminally investigate or prosecute any alcohol or drug abuse patient.[facility] the event this information is protected by the Federal Confidentiality of Alcohol and Drug Abuse Patient Records regulations: The Federal rules restrict any use of the information to criminally investigate or prosecute any alcohol or drug abuse patient.[facility] the event this information is protected by the Federal Confidentiality of Alcohol and Drug Abuse Patient Records regulations: The Federal rules restrict any use of the information to criminally investigate or prosecute any alcohol or drug abuse patient.[facility] the event this information is protected by the Federal Confidentiality of Alcohol and Drug Abuse Patient Records regulations: The Federal rules restrict any use of the information to criminally investigate or prosecute any alcohol or drug abuse patient.[facility] the event this information is protected by the Federal Confidentiality of Alcohol and Drug Abuse Patient Records regulations: The Federal rules restrict any use of the information to criminally investigate or prosecute any alcohol or drug abuse patient.[facility] the event this information is protected by the Federal Confidentiality of Alcohol and Drug Abuse Patient Records regulations: The Federal rules restrict any use of the information to criminally investigate or prosecute any alcohol or drug abuse patient.[facility] the event this information is protected by the Federal Confidentiality of Alcohol and Drug Abuse Patient Records regulations: The Federal rules restrict any use of the information to criminally investigate or prosecute any alcohol or drug abuse patient.[facility] the event this information is protected by the Federal Confidentiality of Alcohol and Drug Abuse Patient Records regulations: The Federal rules restrict any use of the information to criminally investigate or prosecute any alcohol or drug abuse patient.[facility] the event this information is protected by the Federal Confidentiality of Alcohol and Drug Abuse Patient Records regulations: The Federal rules restrict any use of the information to criminally investigate or prosecute any alcohol or drug abuse patient.[facility] the event this information is protected by the Federal Confidentiality of Alcohol and Drug Abuse Patient Records regulations: The Federal rules restrict any use of the information to criminally investigate or prosecute any alcohol or drug abuse patient.[facility] the event this information is protected by the Federal Confidentiality of Alcohol and Drug Abuse Patient Records regulations: The Federal rules restrict any use of the information to criminally investigate or prosecute any alcohol or drug abuse patient.[facility] the event this information is protected by the Federal Confidentiality of Alcohol and Drug Abuse Patient Records regulations: The Federal rules restrict any use of the information to criminally investigate or prosecute any alcohol or drug abuse patient.[facility] the event this information is protected by the Federal Confidentiality of Alcohol and Drug Abuse Patient Records regulations: The Federal rules restrict any use of the information to criminally investigate or prosecute any alcohol or drug abuse patient.[facility] the event this information is protected by the Federal Confidentiality of Alcohol and Drug Abuse Patient Records regulations: The Federal rules restrict any use of the information to criminally investigate or prosecute any alcohol or drug abuse patient.[facility] the event this information is protected by the Federal Confidentiality of Alcohol and Drug Abuse Patient Records regulations: The Federal rules restrict any use of the information to criminally investigate or prosecute any alcohol or drug abuse patient.[facility] Reason for Visit (unrecogniz ed section and content) Reason Comments Orders Reason Comments F/U 6 months Reason Comments Medicare Wellness Exam Reason Comments Medicare Wellness Exam Reason Comments Recheck 3 month follow up Reason Onset Date Comments Population Health Navigation Outreach 12/23/2023 [employer] [facility] Reason Comments Medicare Wellness Exam Annual Medicare [facility] Teams (unrecognized sec tion and content) 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 Relationship Specialty Start Date End Date Jennifer Garay MD [address] [place] [address] PCP - General Internal Medicine 07/09/16 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 Relationship Specialty Start Date End Date Jennifer Garay MD [address] [place] [address] PCP - General Internal Medicine 07/09/16 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 Relationship Specialty Start Date End Date Jennifer Garay MD [address] [place] [address] PCP - General Internal Medicine 07/09/16 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 Relationship Specialty Start Date End Date Jennifer Garay MD [address] [place] [address] PCP - General Internal Medicine 07/09/16 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 Relationship Specialty Start Date End Date eJnnifer Garay MD [address] [place] [address] PCP - General Internal Medicine 07/09/16 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 Relationship Specialty Start Date End Date Jennifer Garay MD [address] [place] [address] PCP - General Internal Medicine 07/09/16 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 Relationship Specialty Start Date End Date Jennifer Garay MD [address] [place] [address] PCP - General Internal Medicine 07/09/16 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 Relationship Specialty Start Date End Date Jennifer Garay MD [address] [place] [address] PCP - General Internal Medicine 07/09/16 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 Relationship Specialty Start Date End Date Jennifer Garay MD [address] [facility] [place] [address] PCP - General Internal Medicine 07/09/16 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 Relationship Specialty Start Date End Date Jennifer Garay MD [address] [place] [address] PCP - General Internal Medicine 07/09/16 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 Relationship Specialty Start Date End Date Jennifer Garay MD [address] [place] [address] PCP - General Internal Medicine 07/09/16 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 Relationship Specialty Start Date End Date Jennifer Garay MD [address] [place] [address] PCP - General Internal Medicine 07/09/16 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 Relationship Specialty Start Date End Date Jennifer Garay MD [address] [place] [address] PCP - General Internal Medicine 07/09/16 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 Relationship Specialty Start Date End Date Jennifer Garay MD [address] [place] [address] PCP - General Internal Medicine 07/09/16 Ginger Pham APRN.MARKETING DATABASE CONSULTANT [address] [place] [address] Splicing Machine Operator Automatic Internal Medicine 08/26/24 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 Relationship Specialty Start Date End Date Jennifer Garay MD [address] [facility], [place] [id number] PCP - General Internal Medicine 07/09/16 Ginger Pham APRN.MARKETING DATABASE CONSULTANT [address] [place] [address] Splicing Machine Operator Automatic Internal Medicine 08/26/24 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 Relationship Specialty Start Date End Date Jennifer Garay MD [address] [facility], [place] [id number] PCP - General Internal Medicine 07/09/16 Ginger Pham APRN.MARKETING DATABASE CONSULTANT [address] [facility], [place] [id number] Splicing Machine Operator Automatic Internal Medicine 08/26/24 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 This clinical summary was aggregated from multiple sources. Caution should be exercised in using it in the provision of clinical care. This summary normalizes information from multiple sources, and as a consequence, information in this document may materially change the coding, format and clinical context of patient data. In addition, data may be omitted in some cases. CLINICAL DECISIONS SHOULD BE BASED ON THE PRIMARY CLINICAL RECORDS. [facility]. provides no warranty or guarantee of the accuracy or completeness of information in this document.
== END | disposition home or self-care (01) ==
PROVIDERS: PCP Internal Medicine; Referring Provider Otolaryngology Otolaryngology/Facial Plastic Surgery; Visit Provider Otolaryngology Otolaryngology/Facial Plastic Surgery
DX: J32.9 Chronic sinusitis, unspecified (principal)
CPT/HCPCS: 70486